=== PATIENT | female | born 1950 | race Caucasian/White ===

== ENCOUNTER → 2016-12-01 | Outpatient (CLI) | payer OTHER ==
[~2016-12-01] MED LIST: ASPIR 8181 MG PO; ASPIRIN EC325 M1 PO; ASPIRIN EC81 M1 PO; ATIVAN1 MG PO; BACTRIM DS TAB1 EACH PO; CALCIUM 1,0001 EACH PO; CALCIUM 500 +1 EACH PO; CALCIUM WITH V1 EAC1 PO; CARDIZEM CD120 MG PO; COLACE100 MG PO; CYMBALTA30 MG PO; DULERA 200 MCG/13 GM INH; ENOXAPARIN40 MG/0.1 SUBQ; HYDROCODONE-AP1 EAC6 PO; INDOMETHACIN 5050 MG PO; KLONOPIN0.5 MG PO; LEVALBUTER1.25 MG/0. INH; LIPITOR40 MG PO; MAGOX 400400 MG PO; MULTAQ400 MG PO; NICOTINE TRANSD21 M1 TRANSDERM; NORCO 5-325 TA1 EACH PO; OXYGEN NASAL; POTASSIUM20 PO; PREDNISONE 20 M20 MG PO; SPIRIVA INH; VENTOLIN HFA INH8 GM INH; XANAX 0.5 MG0.5 M1 PO; XANAX 0.5 MG0.5 MG PO; XANAX 1 MG TABLE1 MG PO; XOPENEX1.25 MG/3 INH; ZYRTEC10 M2 PO; ZYRTEC10 MG PO
== END ==
LOC: CAT 07:57
DX: R91.8 Other nonspecific abnormal finding of lung field (principal)

== ENCOUNTER → 2017-01-18 | Outpatient (CLI) | payer OTHER ==
--- NOTE | ~2017-01-18 | P ---
[facility] [place] [address] PROCEDURE REPORT Name: LINDA BAEZ Room #: REG [facility]#: [id number] Admission: 01/18/17 Attend Phys: Donny Lunsford MD Discharge: Date of : 46 Report #: [id number] THIS REPORT FOR: //name// CC: Donny Burciaga PROCEDURE: Fiberoptic bronchoscopy with fluoro. INDICATION: Lung mass. COMPLICATIONS: None. MEDICATIONS: Versed 12 mg, fentanyl 100 mcg. DESCRIPTION OF PROCEDURE: The patient was informed of risks and benefits and does discussed with the friend also. The patient required a significant amount of sedation; however, did well during the procedure and had amnesia postprocedure. Bronchoscope was passed, vocal cords moved normally. Mucous ____ was noted throughout. Main binu was sharp, right and left were evaluated. Fluoroscopy was used to localize right middle lobe. ____ brushes were passed; however, we cannot definitely say I was in lesion and biopsies were not done. Discussed with the friend post-procedure and a chest x-ray was done post-procedure showing no acute change. The patient is to follow up in the office. <ELECTRONICALLY SIGNED> By: Donny Lunsford MD 02/06/17 1917 0921 1030 Donny Lunsford MD /nt
--- NOTE | ~2017-01-18 | CNG ---
[facility] [place] [address] CYTO-NONGYN REPORT PROCEDURE Name: KALANI BAEZ Room #: REG [facility].#: [id number] Admission: 01/18/17 Date of : 46 Discharge: Report #: [id number] Path Case #: [id number] CYTOPATHOLOGY REPORT COLLECTION DATE: 01/18/2017 RECEIVED DATE: 01/18/2017 SUBMITTING PHYS: Dr. Donny Lunsford OTHER PHYS: Dr. Tad Burciaga CLINICAL HISTORY: Abnormal CT. SPECIMEN(S) RECEIVED: A.Bronchial brushings, RLL B.Bronchial brush rinse, RLL C.Bronchial wash, RLL * * * * * * * * * * * * FINAL DIAGNOSIS: A. Lung, RLL, Bronchial brushings: Atypical epithelial cells identified, cannot exclude a reactive process. - Background of reactive bronchial epithelial cells and alveolar macrophages. - Partially obscured by Air-drying artifact. B. Lung, RLL, Bronchial brush rinse: No malignant cells identified. - Reactive bronchial epithelial cells, inflammatory cells and alveolar macrophages. C. Lung, RLL, Bronchial wash: - No malignant cells identified. - Sparsely cellular specimen consisting of reactive bronchial epithelial cells, alveolar macrophages and mucoid debris. PATHOLOGIST: Jaz Damon M.D. REPORT ELECTRONICALLY SIGNED BY: Jaz Damon M.D. DATE/TIME: 01/19/2017 14:34 * * * * * * * * * * * * GROSS PATHOLOGY: A. Bronchial brushings, RLL: The specimen is labeled "Kalani Baez" and consists of four fixed slides. B. Bronchial brush rinse, RLL: The specimen is labeled "Kalani Baez" and consists of a brush tip in fixative. One ThinPrep slide was prepared. C. Bronchial wash, RLL: The specimen is submitted unfixed, labeled "Kalani Baez". Received by the Cytology Department is 10 mL of cloudy white fluid. One ThinPrep slide was prepared. (clt 01.18.2017) MACHINE ASSEMBLER(S): YI Chawla(ASCP) [address] [address] CYTO-NONGYN REPORT PROCEDURE Name: KALANI BAEZ Room #: [facility].#: [id number] Admission: 01/18/17 Date of : 46 Discharge: Report #: [id number] Path Case #: [id number] INITIAL CPT CODE(S): A; 73786 B; 81291 C; 74057 Professional services performed by [facility] at [address], [place] [address] Technical services performed by [facility] at [address] [place] [address]., [address], [place] [address]. [facility] [address] [place] [address], [address] [place] [address] PHONE: [phone] DIRECTOR: Dereje Bee M.D. * * * END OF REPORT * * *
== END | disposition home or self-care (01) ==
LOC: CATH 07:53
DX: R91.8 Other nonspecific abnormal finding of lung field (principal)

== ENCOUNTER → 2017-07-20 | Outpatient (CLI) | payer OTHER ==
[2017-07-20] VITALS (9 sets, daily range): BP systolic 115–140; BP diastolic 67–77
[~2017-07-20] VITALS: Ht 157.5 cm; Wt 46.3 kg
--- NOTE | ~2017-07-20 | S ---
[facility] [place] [address] SURGICAL PATH RPT PROCEDURE Name: KALANI BAEZ DAMIEN Room #: REG [facility].#: [id number] Admission: 07/20/17 Date of : 46 Discharge: Report #: [id number] Path Case #: [id number] PATHOLOGY REPORT COLLECTION DATE: 07/20/2017 RECEIVED DATE: 07/20/2017 SUBMITTING PHYS: Dr. Servando Dhaliwal OTHER PHYS: Dr. Donny Burciaga SPECIMEN(S) RECEIVED: A.R lung mass * * * * * * * * * * * * FINAL DIAGNOSIS: Lung, right lung mass, CT guided needle core biopsy: - AT LEAST MINIMALLY INVASIVE ADENOCARCINOMA. COMMENT: Co-review: Dr. Stephanie Crane. Findings are telephoned to Dr. Nick Lunsford at noon on 07/23/17. (IUV:db; 07/23/2017) PATHOLOGIST: Jaz Damon M.D. REPORT ELECTRONICALLY SIGNED BY: Jaz Damon M.D. DATE/TIME: 07/23/2017 16:30 * * * * * * * * * * * * GROSS PATHOLOGY: Received in formalin labeled "Kalani Baez, CT guided lung BX right side," are 7 distinct needle cores of diez soft tissue ranging from 0.1 to 0.2 cm in length, which are submitted entirely in cassette A1. Due to the minute nature of the specimen, it may not survive processing. (TSD; 07/20/2017) CLINICAL HISTORY: Right lung mass INITIAL CPT CODE(S): A; 79415 Professional services performed by [facility] at [facility] [address], [place] [address] [facility] [address] [place] [address] SURGICAL PATH RPT PROCEDURE Name: KALANI BAEZ Room #: REG [facility]#: [id number] Admission: 07/20/17 Date of : 46 Discharge: Report #: [id number] Path Case #: [id number] Technical services performed by [facility] at [address] [place] [address], [facility] [address] [address]. [facility] [address] [place] [address] PHONE: [phone] DIRECTOR: Dereje Bee M.D. * * * END OF REPORT * * *
[2017-07-20 09:05] LABS: HEMATOCRIT 40.5 % (37.0-47.0); HEMOGLOBIN 13.7 gm/dL (12.0-15.0); MCH 31.6 pg (26.0-34.0); MCHC 33.7 g/dL (28.0-37.0); MCV 93.6 fL (80.0-100.0); RBC 4.33 mil/uL (4.20-5.00); RDW 13.7 % (10.5-14.5)
[2017-07-20 09:13] LABS: CALCIUM 8.9 mg/dL (8.5-10.1); CREATININE 0.8 mg/dL (0.6-1.0); POTASSIUM 4.8 mmol/L (3.5-5.1)
[2017-07-20 09:20] LABS: APTT 26.4 Seconds (24.5-32.8); PROTIME 9.9 Seconds (9.3-11.4)
== END | disposition home or self-care (01) ==
LOC: CAT 08:35
PROVIDERS: Internal Medicine Pulmonary Disease
DX: C34.2 Malignant neoplasm of middle lobe, bronchus or lung (principal); I48.91 Unspecified atrial fibrillation; J44.9 Chronic obstructive pulmonary disease, unspecified; E78.5 Hyperlipidemia, unspecified; F32.9 Major depressive disorder, single episode, unspecified; F41.8 Other specified anxiety disorders; F17.210 Nicotine dependence, cigarettes, uncomplicated; Z96.642 Presence of left artificial hip joint; Z98.890 Other specified postprocedural states; Z79.899 Other long term (current) drug therapy

== ENCOUNTER → 2017-11-19 | Outpatient (CLI) | payer OTHER | LOC: CAT 06:43 | DX: J98.11 Atelectasis (principal); I25.10 Atherosclerotic heart disease of native coronary artery without angina pectoris; I70.0 Atherosclerosis of aorta; J43.8 Other emphysema ==

== ENCOUNTER 2018-11-06 20:58 | Emergency (ER) | payer OTHER ==
[~2018-11-06] VITALS: Ht 154.9 cm; Wt 46.3 kg
[2018-11-06] MEDS ORDERED: VENTOLIN HFA 1818 GM INH (21:02)
[2018-11-06] MEDS ORDERED: ASPIRIN81 M2 PO (21:02)
[2018-11-06] MEDS ORDERED: LIPITOR40 MG PO (21:02)
[2018-11-06] MEDS ORDERED: LEVALBUTER1.25 MG/0. INH (21:03)
[2018-11-06] MEDS ORDERED: ZOLOFT25 MG PO (21:03)
[2018-11-06] MEDS ORDERED: MULTAQ 400 MG400 MG PO (21:04)
[2018-11-06] MEDS ORDERED: PREDNISONE 5 MG5 M1 PO (21:04)
[2018-11-06] MEDS ORDERED: TRELEGY ELLIPT1 EACH INH (21:04)
[2018-11-06] MEDS ORDERED: ZYRTEC10 M5 PO (21:05)
[2018-11-06] MEDS ORDERED: XANAX 0.5 MG0.5 MG PO (21:05)
[2018-11-06] MEDS ORDERED: MUPIROCIN22 GM TOP (23:35)
[2018-11-06] MEDS ORDERED: BENADRYL25 MG PO (23:36)
[2018-11-06 23:58] VITALS: BP 142/70
== END 2018-11-06 23:59 | disposition home or self-care (01) ==
LOC: ER 20:58
DX: L30.9 Dermatitis, unspecified (principal); L01.00 Impetigo, unspecified; I48.91 Unspecified atrial fibrillation; J44.9 Chronic obstructive pulmonary disease, unspecified; E78.5 Hyperlipidemia, unspecified; Z96.642 Presence of left artificial hip joint; F17.210 Nicotine dependence, cigarettes, uncomplicated; Z88.1 Allergy status to other antibiotic agents; Z88.8 Allergy status to other drugs, medicaments and biological substances; Z91.040 Latex allergy status; Z79.899 Other long term (current) drug therapy

== ENCOUNTER 2018-11-17 21:14 | Emergency (ER) | payer OTHER ==
[~2018-11-17] VITALS: Ht 154.9 cm; Wt 45.4 kg
[~2018-11-17 21:14] MED LIST changes: +ASPIRIN81 M2 PO; +BENADRYL25 MG PO; +MULTAQ 400 MG400 MG PO; +MUPIROCIN22 GM TOP; +PREDNISONE 5 MG5 M1 PO; +TRELEGY ELLIPT1 EACH INH; +VENTOLIN HFA 1818 GM INH; +ZOLOFT25 MG PO; +ZYRTEC10 M5 PO
[2018-11-17 21:25] VITALS: BP 169/86
[2018-11-17] MEDS ORDERED: XANAX 0.5 MG0.5 M1 PO (22:05)
[2018-11-17] MEDS ORDERED: IPRAT-ALBUT 0.5-3 ML IH (22:11)
== END 2018-11-17 22:22 | disposition home or self-care (01) ==
LOC: ER 21:14
DX: F41.0 Panic disorder [episodic paroxysmal anxiety] (principal); J44.9 Chronic obstructive pulmonary disease, unspecified; L30.9 Dermatitis, unspecified; I48.91 Unspecified atrial fibrillation; F32.9 Major depressive disorder, single episode, unspecified; E78.5 Hyperlipidemia, unspecified; F17.210 Nicotine dependence, cigarettes, uncomplicated; Z96.642 Presence of left artificial hip joint; Z88.1 Allergy status to other antibiotic agents; Z88.8 Allergy status to other drugs, medicaments and biological substances; Z91.040 Latex allergy status; Z79.899 Other long term (current) drug therapy

== ENCOUNTER → 2019-09-16 | Outpatient (CLI) | payer OTHER ==
[~2019-09-16] MED LIST changes: +IPRAT-ALBUT 0.5-3 ML IH
== END ==
LOC: CAT 13:04
DX: J43.9 Emphysema, unspecified (principal); R91.1 Solitary pulmonary nodule; J98.4 Other disorders of lung; N28.1 Cyst of kidney, acquired; N63.20 Unspecified lump in the left breast, unspecified quadrant; J20.8 Acute bronchitis due to other specified organisms; M43.8X4 Other specified deforming dorsopathies, thoracic region

== ENCOUNTER 2020-01-31 23:36 | Inpatient (IN) | payer OTHER ==
[~2020-01-31] VITALS: Ht 157.5 cm; Wt 42.3 kg
[2020-01-31 23:37] VITALS: BP 124/81
[2020-02-01 00:21] LABS: BASOPHILS 1.5 % (0.0-2.0); EOSINOPHILS 8.4 % (0.0-3.0); HEMATOCRIT 49.9 % (37.0-47.0); HEMOGLOBIN 16.2 gm/dL (12.0-15.0); LYMPHOCYTES 11.4 % (24.0-44.0); MCH 31.1 pg (26.0-34.0); MCHC 32.5 g/dL (28.0-37.0); MCV 95.6 fL (80.0-100.0); MONOCYTES 9.5 % (1.0-8.0); PLATELET COUNT 335 thou/uL (150-400); POLYS 69.2 % (36.0-66.0); RBC 5.22 mil/uL (4.20-5.00); RDW 14.8 % (10.5-14.5); WBC 8.6 thou/uL (4.0-11.0)
[2020-02-01 00:23] LABS: ANION GAP 10 mmol/L (7-16); BUN 18 mg/dL (7-18); CALCIUM 9.1 mg/dL (8.5-10.1); CHLORIDE 104 mmol/L (98-107); CO2 29 mmol/L (21-32); CREATININE 0.7 mg/dL (0.6-1.0); GLUCOSE 70 mg/dL (74-106); POTASSIUM 4.6 mmol/L (3.5-5.1); SODIUM 143 mmol/L (136-145)
[2020-02-01 00:32] LABS: ALBUMIN 3.5 g/dL (3.4-5.0); SGOT 28 U/L (15-37); SGPT 18 U/L (30-65); TOTAL BILIRUBIN 0.4 mg/dL (0.2-1.0); TOTAL PROTEIN 6.8 g/dL (6.4-8.2); TROPONIN-I <0.06 ng/mL (<0.06)
[2020-02-01 02:54] VITALS: BP 110/67
[2020-02-01 03:53] VITALS: BP 110/67
[2020-02-01 04:12] VITALS: BP 134/88
--- NOTE | 2020-02-01 05:14 | NUR ---
VSS-AFEBRILE. ALERT AND ORIENTED X 4, SOA AT REST AND WITH MINIMAL EXERTION. 2LNC IN PLACE, REPORTS NO USE OF HOME OXYGEN. WHEEZES PRESENT IN ALL LUNGS BEE BILATERALLY. UPPER EXTREMITY TREMORS PRESENT. OOB WITH SBA AND CANE, WEAK AND UNSTEADY ON FEET. FALL PRECAUTIONS IN PLACE, CALLS APPROPRIATELY FOR ANY NEEDED ASSISTANCE.
[2020-02-01 08:01] VITALS: BP 109/62
--- NOTE | 2020-02-01 10:59 | EKG ---
[facility] [place] [address] ELECTROCARDIOGRAM REPORT Name: LINDA BAEZ Room #: 355-P ADM IN M.R.#: [id number] Admission: 02/01/20 Attend Phys: Lizabeth Chen MD Discharge: Date of : 46 Report #: [id number] THIS REPORT FOR: cc: Tad Burciaga MD, Michael D. MD Lundgren,Lonnie Curry MD [facility] ~ THIS REPORT FOR: //name// [facility] ED Test Date: 2020-01-31 Test Time: 23:57:39 Pat Name: LINDA BAEZ Department: Room: [facility] Gender: F Scale Shooter: LIZ : 1950 Requested By: Yusuf Johnson Order Number: [id number] MD: Lonnie Monroy Measurements Intervals [place] Rate: 90 P: 82 NE: 153 QRS: 83 QRSD: 97 T: 58 QT: 353 QTc: 432 Interpretive Statements Sinus rhythm Poor R wave progression Compared to ECG 04/30/2015 08:07:42 Myocardial infarct finding now present Atrial flutter no longer present Electronically Signed On 02-01-2020 10:59:00 CDT by Lonnie Monroy [email or web address] <ELECTRONICALLY SIGNED> By: Lonnie Monroy MD, [facility] 02/01/20 1059 2357 [id number] Lonnie Monroy MD, [facility] /EPI
[2020-02-01 16:33] VITALS: BP 121/72
--- NOTE | 2020-02-01 18:13 | NUR ---
ASSUMED CARE OF PT AT 0700. PT AOX4 IN NO ACUTE DISTRESS. MAINTAINS SPO2 ON 3L NC. SOA W/ ACTIVITY. BILAT WHEEZES TO AUSCULTATION. UP W/ SBA. OFF ENHANCED PRECAUTIONS PER I.D. SINUS ON TELEMETRY. AFEBRILE. WAITING ON BED TO TRANSFER OFF UNIT. PT CALLS OUT APPROPRIATELY. WCM.
[2020-02-01 20:50] VITALS: BP 131/75
[2020-02-02 03:25] VITALS: BP 145/82
[2020-02-02 06:47] LABS: HEMATOCRIT 45.5 % (37.0-47.0); HEMOGLOBIN 14.4 gm/dL (12.0-15.0); MCH 30.2 pg (26.0-34.0); MCHC 31.7 g/dL (28.0-37.0); MCV 95.5 fL (80.0-100.0); RBC 4.76 mil/uL (4.20-5.00); RDW 14.7 % (10.5-14.5); WBC 13.6 thou/uL (4.0-11.0)
[2020-02-02 06:55] LABS: CALCIUM 9.2 mg/dL (8.5-10.1); CREATININE 0.7 mg/dL (0.6-1.0); POTASSIUM 4.8 mmol/L (3.5-5.1)
--- NOTE | 2020-02-02 08:15 | NUR ---
Pt. c/o dryness in her nose. MOTORS AND CONTROLS TESTER notified and nasal gel ordered. Pt. verbalized relief after using it. O2 at 2.5 L/NC , wheezy and gets short of breath with exertion. PRN xanax given for anxiety with some relief. She stated she slept well during the night. IV on left AC leaking, new IV placed on left upper arm. Up by herself to the bathroom with steady gait and she calls appropriately for assistance when she's connected to her IV pump. No other concerns voiced. Making progress towards care plan goals.
[2020-02-02 08:21] VITALS: BP 128/76
--- NOTE | 2020-02-02 12:30 | NUR ---
PT MAY BE REMOVED FROM ENHANCED PRECAUTIONS PER JACK PIMENTEL
[2020-02-02 19:20] VITALS: BP 137/74
[2020-02-03 03:45] VITALS: BP 143/73
[2020-02-03 06:16] LABS: HEMATOCRIT 46.1 % (37.0-47.0); MCH 30.7 pg (26.0-34.0); MCHC 32.5 g/dL (28.0-37.0); MCV 94.4 fL (80.0-100.0); RBC 4.88 mil/uL (4.20-5.00); RDW 14.2 % (10.5-14.5); WBC 11.5 thou/uL (4.0-11.0)
[2020-02-03 06:28] LABS: CALCIUM 9.3 mg/dL (8.5-10.1); CREATININE 0.7 mg/dL (0.6-1.0); POTASSIUM 4.4 mmol/L (3.5-5.1)
--- NOTE | 2020-02-03 06:30 | NUR ---
Pt. requested xanax at HS. She feels like she's getting worst as far as her breathing comparing her previous admission to present. O2 at 3.5 L/NC with O2 sat in the mid 90's. She reported shortness of breath with minimal exertion. Refused PM dose of guiafenessin. Encouraged to call staff if condition does not improve after xanax. She verbalized feeling better after xanax dose. Ambulated with cane to the bathroom. Slept some. Making some progress towards care plan goals.
[2020-02-03 07:03] VITALS: BP 141/98
--- NOTE | 2020-02-03 14:05 | NUR ---
INITIAL ASSESSMENT: CRYSTAL reviewed chart and spoke with nursing and attending physician. Pt was admitted from home due to exacerbation of COPD/hypoxia. Pt placed in Enhanced Isolation to r/o COVID-19. Pt's test was negative. Pt to transfer off 3W when a bed becomes available. Pt is afebrile and on 3L of O2. Pt is on IV abx. CRYSTAL spoke with pt via phone. Introduced role of SW. Pt is alert/orientated x 4. Pt reports she lives at home alone in a split level home. 2 steps to enter and 12 steps total inside. Prior to admission, pt was independent with ADLs. Pt does have a cane and is on 2L O2 at nighttime only. [employer] provides pt's home O2. Pt states she has been increasingly weak over the past several days and has had to sit down and rest while walking short distances. Pt's neighbors and best friend are supportive and involved in pt's care. Pt has not used HH in the past. Pt has been to [facility] following hip surgery several years ago. Pt is agreeable with HH referral at time of discharge. Therapy is recommending HH. Pt's PCP is Dr. Tad Burciaga. Options provided for HH agency. No preference voiced. CRYSTAL faxed HH referral to [facility] . Notified liaison of new referral. Pt will need a rest/exercise oximetry prior to discharge to determine if pt has additional Home O2 needs. CRYSTAL is following to assist as needed with discharge planning.
[2020-02-03 15:24] VITALS: BP 123/80
--- NOTE | 2020-02-03 18:49 | NUR ---
PATIENT IS A TRANSFER FROM [facility] ARRIVED AT UNIT AT APPROX 1835. PATIENT IS SITTING COMFORTABLY IN BED AND VOICES NO NEEDS AT THIS TIME. VSS. WILL GIVE REPORT TO NOCTURNAL RN.
--- NOTE | 2020-02-04 04:15 | NUR ---
VSS-AFEBRILE. LUNGS TIGHT AND COURSE IN BILATERAL UPPER LOBES/DIMINISHED IN BASES. REMAINS ON 4LNC. AT PATIENTS REQUEST, VICENTE HALEY WAS CALLED TO REQUEST THAT XANAX BE ORDERED FOR EVERY 6 OURS VS EVERY 8. ORDER WAS APPROVED AND GIVEN DIRECTED FOR ANXIETY. RESTED WELL THROUGH NIGHT WITH FEW NEEDS. FALL PRECAUTIONS IN PLACE, CALLS APPROPRIATELY FOR ANY NEEDED ASSISTANCE.
[2020-02-04 05:58] LABS: HEMATOCRIT 47.8 % (37.0-47.0); HEMOGLOBIN 15.6 gm/dL (12.0-15.0); MCH 31.1 pg (26.0-34.0); MCHC 32.6 g/dL (28.0-37.0); MCV 95.5 fL (80.0-100.0); RBC 5.01 mil/uL (4.20-5.00); RDW 14.6 % (10.5-14.5); WBC 9.8 thou/uL (4.0-11.0)
[2020-02-04 06:25] LABS: CALCIUM 9.3 mg/dL (8.5-10.1); CREATININE 0.9 mg/dL (0.6-1.0); POTASSIUM 4.7 mmol/L (3.5-5.1)
[2020-02-04 07:46] VITALS: BP 165/77
--- NOTE | 2020-02-04 11:03 | NUR ---
Recommend to lift special precautions tray diet order since covid negative and recommend to discontinue heart healthy restricted and change to regular diet as pt is malnourished, has had wt loss and BMI of 17.
--- NOTE | 2020-02-04 14:44 | NUR ---
CARE TEAM INDICATED THAT PT WILL LIKELY BE MEDICALLY STABLE TO DC HOME TOMORROW. CM CALLED AND NOTIFIED [facility] INTAKE. PT IS STILL ON 3L O2 CONTINUOUSE AT THIS TIME. 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 CM TO FOLLOW INDICATED WITH DC PLANNING.
--- NOTE | 2020-02-04 19:56 | NUR ---
ASSUMED CARE OF PATIENT AT SHIFT CHANGE. ASSESSMENT CHARTED. MEDICATION GIVEN PER VIAL. VSS. PATIENT IS A&OX4 AND DENIES PAIN. STATES MUCINEX WILL NOT HELP; REFUSED. APPEARS TO BE DOING BETTER W NEW BREATHING TREATMENTS. PATIENT UP TO BATHROOM OR BSC W CANE AND TOLERATING WELL. NAPPING MOST OF DAY D/T POOR SLEEP LAST NIGHT. ANXIETY UNDER CONTROL. DENIES ANY OTHER NEEDS. CALLS NEEDED. WILL CONTINUE TO MONITOR AND FOLLOW PLAN OF CARE.
[2020-02-04 20:35] VITALS: BP 141/91
[2020-02-05 06:00] LABS: HEMATOCRIT 46.1 % (37.0-47.0); HEMOGLOBIN 14.7 gm/dL (12.0-15.0); MCH 30.5 pg (26.0-34.0); MCHC 31.9 g/dL (28.0-37.0); MCV 95.8 fL (80.0-100.0); RBC 4.81 mil/uL (4.20-5.00); RDW 14.7 % (10.5-14.5); WBC 9.5 thou/uL (4.0-11.0)
[2020-02-05 06:38] LABS: CALCIUM 9.5 mg/dL (8.5-10.1); CREATININE 0.5 mg/dL (0.6-1.0)
[2020-02-05 06:51] LABS: POTASSIUM 4.8 mmol/L (3.5-5.1)
[2020-02-05 07:45] VITALS: BP 129/72
--- NOTE | 2020-02-05 08:02 | NUR ---
Pt. rested quietly during the night when checked on during frequent rounds. She offers no c/o shortness of air or pain. Pt. does c/o anxiety and po xanax given (see emar) with some relief noted. Bed alarm is on.
[2020-02-05] MEDS ORDERED: NICOTINE TRANSD21 M1 TRANSDERM (09:30)
[2020-02-05] MEDS ORDERED: MUCINEX600 MG PO (09:31)
[2020-02-05] MEDS ORDERED: PREDNISONE 10 M10 M1 PO (09:32)
[2020-02-05] MEDS ORDERED: DOXYCYCLINE 10100 M2 PO (09:32)
[2020-02-05 10:24] VITALS: BP 129/72
--- NOTE | 2020-02-05 10:56 | NUR ---
PT DISCHARGING TODAY TO HOME WITH [facility] FAXED DC ORDERS/SUMMARY SPOKE WITH YANY IN INTAKE SHE RECEIVED ORDERS AND WILL NOTIFY PT AND SET UP VISITS.
[2020-02-05 10:59] VITALS: BP 129/72
--- NOTE | 2020-02-05 13:46 | NUR ---
CARE TEAM INDICATED THAT PT IS MEDICALLY STABLE TO DC HOME THIS DAY. EX OX TEST DONE THIS DAY AND PT QUALIFIED FOR 2L O2 WITH ACTIVITY. CM SPOKE WITH PT AND SHE WAS AGREEABLE WITH O2 BEING ORDERED THROUGH [facility] SHE HAD HER NOC O2 THROUGH THEM ALREADY. CM CONTACTED [facility] THEIR LIAISON, FAXED ORDER OVER AND REQUESTED THAT PORTABLE TANK BE DELIVERED FOR PT TO TAKE HOME WITH HER. ORDERS SENT TO [facility] FOR HH SERVICES. PT IS AWARE AND AGREEABLE AND INDICATED HER TRANSPORT WON'T BE HERE UNTIL AFTER 1600 THIS EVENING. NO OTHER CM INTERVENTION INDICATED. CASE CLOSED.
[2020-02-05 15:03] VITALS: BP 141/87
--- NOTE | 2020-02-05 15:31 | NUR ---
PT IS A&OX4, UP WITH CANE AND STAND BY ASSIST, IV LUE SALINE LOCK, NICOTINE PATCH LUE, REG DIET, CONTINENT TO BOWEL AND BLADDER, HYPOXIA, XANAX FOR ANXIETY. PT RECEIVED DISCHARGE INSTRUCTIONS, VERBLIZED UNDERSTANDING. PT GOING HOME WITH HOME HEALTH, NO DISTRESS NOTED.
== END 2020-02-05 17:40 | disposition home health service (06) | DRG 871 ==
LOC: ER 23:36 → EROBS 02-01 00:44 → 3W 02-01 00:44 → 4W 02-03 18:47
PROVIDERS: Emergency Medicine; Nurse Practitioner Family; ADMIT Hospitalist; ATTEND Hospitalist
DX: A41.9 Sepsis, unspecified organism (principal); J96.21 Acute and chronic respiratory failure with hypoxia; J44.0 Chronic obstructive pulmonary disease with (acute) lower respiratory infection; J44.1 Chronic obstructive pulmonary disease with (acute) exacerbation; C34.90 Malignant neoplasm of unspecified part of unspecified bronchus or lung; N17.9 Acute kidney failure, unspecified; Z20.828 Contact with and (suspected) exposure to other viral communicable diseases; F41.9 Anxiety disorder, unspecified; Z96.642 Presence of left artificial hip joint; F17.210 Nicotine dependence, cigarettes, uncomplicated; R63.4 Abnormal weight loss; G47.00 Insomnia, unspecified; Z60.2 Problems related to living alone; I48.0 Paroxysmal atrial fibrillation; D32.9 Benign neoplasm of meninges, unspecified; E78.5 Hyperlipidemia, unspecified; Z88.8 Allergy status to other drugs, medicaments and biological substances; Z88.1 Allergy status to other antibiotic agents; Z71.6 Tobacco abuse counseling; Z87.81 Personal history of (healed) traumatic fracture; Z91.040 Latex allergy status; Z79.82 Long term (current) use of aspirin; Z79.899 Other long term (current) drug therapy; Z82.49 Family history of ischemic heart disease and other diseases of the circulatory system; Z83.6 Family history of other diseases of the respiratory system; Z79.52 Long term (current) use of systemic steroids
CPT/HCPCS: 10040; 10080; 10879

== ENCOUNTER 2021-01-02 02:56 | Inpatient (IN) | payer OTHER ==
[~2021-01-02] VITALS: Ht 157.5 cm; Wt 43.2 kg
[2021-01-02] VITALS (7 sets, daily range): BP systolic 107–145; BP diastolic 54–82
--- NOTE | ~2021-01-02 | EMS ---
[place] [address] EMS Patient Care Report Name: LINDA BAEZ Room #: REG Wil[facility]#: [id number] Admission: 01/02/21 Attend Phys: Discharge: Date of : 46 Report #: [id number] THIS REPORT FOR: //name// Report Transmitted: 01/02/2021 03:49 EMS Care Summary [place], [place] Incident [id number] @ 01/02/2021 02:09 Incident [address] [place] [address] Patient LINDA BAEZ Female, 70 Years 1950 Patient Address [address] [place] [address] Patient History Chronic Obstructive Pulmonary Disease (COPD),Anxiety Disorder (Panic Attacks),Depression,Atrial Fibrillation, Patient Allergies Avelox,Keflex, Patient Medications Sertraline, Aspirin, Xanax, Ventolin, Atorvastatin, Chief Complaint RIGHT HIP PAIN Disposition Transported No Lights/[place] Dispatch Reason Traumatic Injury Transported To [facility] Narrative DISPATCHED NON EMERGENCY ON AN INJURY. 70 Y/O FEMALE SITTING ON COUCH IN LIVING ROOM APPEARING IN NO IMMEDIATE DISTRESS. GCS 15 AND A/OX4. CONSENTS FOR TX AND REQUESTS TRANSPORTATION TO [facility]. PT STATES THAT [place] [address] EMS Patient Care Report Name: LINDA BAEZ Room #: REG [facility]#: [id number] Admission: 01/02/21 Attend Phys: Discharge: Date of : 46 Report #: [id number] SHE WOKE UP IN BED WITH RIGHT HIP PAIN. DENIES ANY INJURY AT THAT POINT. SHE THEN STATES THAT SHE WENT TO GO TAKE HER DOGS OUTSIDE AND WHEN SHE TOOK A STEP DOWN THE STAIRS AND TURNED AROUND PUTTING WEIGHT ON IT SHE HAD A SHARP PAIN. NOW EVERY TIME SHE TRIES TO MOVE IT CAUSES HER SHARP PAIN. STILL DENIES REALLY INJURING HERSELF. MOVED WITHOUT INCIDENT TO AMBULANCE VIA STRETCHER. V/S'S OBTAINED. TRANSPORTED TO [facility]. REASSESSED ENROUTE. REMAINS GCS 15 AND A/X4. V/S'S OBTAINED. PAIN REMAINS UNCHANGED AT 6. REPORT CALLED TO HOSPITAL. MOVED WITHOUT INCIDENT TO ER HOSPITAL BED. PT CARE TRANSFERRED TO ED RN. MEDIC 41 PLACED IN SERVICE. Initial Vitals @02:43P: 91,R: 18,BP: 135/75,Pain: 6/10,GCS: 15,CO: 7,SpO2: 93,Revised Trauma: 12, @02:46P: 89,R: 16,BP: 128/78,Pain: 6/10,GCS: 15,CO: 8,SpO2: 93,Revised Trauma: 12, Assessments @02:31MENTAL:Person Oriented,Time Oriented,Event Oriented,Place Oriented,SKIN:HEENT:Head/Face: No Abnormalities,Neck/Airway: No Abnormalities,LUNG SOUNDS:General: No Abnormalities,ABDOMEN:General: No Abnormalities,PELVIS//GI:EXTREMITIES:Capillary Refill: Right Upper: < 2 Sec,Capillary Refill: Left Lower: < 2 Sec,Capillary Refill: Left Upper: < 2 Sec,Capillary Refill: Right Lower: < 2 Sec,Left Arm: No Abnormalities,Right Arm: No Abnormalities,Left Leg: No Abnormalities,Right Leg: No Abnormalities,PULSE:Radial: 2+ Normal,NEURO: Impression Acute Pain, not elsewhere classified Procedures @02:30ALS AssessmentResponse: UnchangedSucceeded@02:37StretcherResponse: Unchanged Timeline 02:08,Call Received 02:08,Dispatch Notified 02:09,Dispatched 02:11,En Route 02:26,On Scene 02:30,At Patient 02:30,ALS Assessment,Response: UnchangedSucceeded, 02:37,Stretcher,Response: Unchanged 02:43,BP: 135/75 M,PULSE: 91,RR: 18 R,SPO2: 93 Ox,ETCO2: ,BG: ,PAIN: 6,GCS: 15, 02:46,BP: 128/78 M,PULSE: 89,RR: 16 R,SPO2: 93 Ox,ETCO2: ,BG: ,PAIN: 6,GCS: 15, 02:47,Depart Scene 02:54,At Destination [facility] [address] [place] [address] EMS Patient Care Report Name: SASHALINDA Room #: REG Wilfred#: [id number] Admission: 01/02/21 Attend Phys: Discharge: Date of : 46 Report #: [id number] 03:16,Call Closed Disclaimer v1.1 Copyright 202 [employer] This EMS Care Summary contains data elements from the applicable legal record (which may be displayed differently). It is designed to provide pertinent information for the following purposes: continuity of care, clinical quality, and state data reporting. The complete legal record is available to ED staff and administrators of the receiving hospital in [employer] Patient Tracker. All data is provided "as is."
[~2021-01-02 02:56] MED LIST changes: +DOXYCYCLINE 10100 M2 PO; +MUCINEX600 MG PO; +PREDNISONE 10 M10 M1 PO
[2021-01-02 06:49] LABS: ABSOLUTE NEUTROPHILS 9.9 thou/uL (1.4-8.2); BASOPHILS 0.2 % (0.0-2.0); EOSINOPHILS 1.3 % (0.0-3.0); HEMATOCRIT 38.4 % (37.0-47.0); HEMOGLOBIN 13.6 gm/dL (12.0-15.0); MCH 32.7 pg (26.0-34.0); MCHC 35.4 g/dL (28.0-37.0); MCV 92.3 fL (80.0-100.0); MONOCYTES 10.5 % (1.0-8.0); PLATELET COUNT 339 thou/uL (150-400); RBC 4.16 mil/uL (4.20-5.00); RDW 13.8 % (10.5-14.5); WBC 12.2 thou/uL (4.0-11.0)
[2021-01-02 06:58] LABS: CALCIUM 8.9 mg/dL (8.5-10.1); CREATININE 0.6 mg/dL (0.6-1.0); POTASSIUM 3.7 mmol/L (3.5-5.1)
[2021-01-02 07:00] LABS: URINE BILIRUBIN NEGATIVE (Negative); URINE BLOOD TRACE (Negative); URINE CLARITY CLEAR; URINE COLOR YELLOW; URINE GLUCOSE-RANDOM* NEGATIVE (Negative); URINE KETONES TRACE (Negative); URINE LEUKOCYTES-REFLEX NEGATIVE (Negative); URINE NITRITE-REFLEX NEGATIVE (Negative); URINE PROTEIN (DIPSTICK) NEGATIVE (Negative); URINE UROBILINOGEN 0.2 E.U./dl (0.2-1.0)
--- NOTE | 2021-01-02 08:14 | EKG ---
[address] [place] [address] ELECTROCARDIOGRAM REPORT Name: LINDA BAEZ DAMIEN Room #: 463-P ADM IN M.R.#: [id number] Admission: 01/02/21 Attend Phys: Franck Vogt, Discharge: Date of : 46 Report #: [id number] [facility] ED Test Date: 2021-01-02 Test Time: 06:10:39 Pat Name: LINDA BAEZ Department: Room: 463 Gender: F Fig Washer: kashmir : 1950 Requested By: Pati Meng Order Number: [id number] MD: Raz Mariano Measurements Intervals [place] Rate: 85 P: 78 VA: 168 QRS: 93 QRSD: 94 T: 68 QT: 360 QTc: 428 Interpretive Statements Sinus rhythm Atrial premature complex Compared to ECG 01/31/2020 23:57:39 Atrial premature complex(es) now present Poor R-wave progression no longer present Electronically Signed On 01-02-2021 8:13:58 CDT by Raz Mariano [email or web address] <ELECTRONICALLY SIGNED> By: Raz Mariano MD, [facility] 01/02/21812 Raz Mariano MD, [facility] /EPI
[2021-01-02 14:24] LABS: ABSOLUTE NEUTROPHILS 14.8 thou/uL (1.4-8.2); BASOPHILS 0.3 % (0.0-2.0); EOSINOPHILS 0.2 % (0.0-3.0); HEMATOCRIT 41.5 % (37.0-47.0); HEMOGLOBIN 13.6 gm/dL (12.0-15.0); MCH 30.9 pg (26.0-34.0); MCHC 32.7 g/dL (28.0-37.0); MCV 94.4 fL (80.0-100.0); MONOCYTES 3.3 % (1.0-8.0); PLATELET COUNT 336 thou/uL (150-400); POLYS 93.2 % (36.0-66.0); RDW 14.1 % (10.5-14.5); WBC 15.9 thou/uL (4.0-11.0)
[2021-01-02 14:41] LABS: CALCIUM 8.6 mg/dL (8.5-10.1); CREATININE 0.6 mg/dL (0.6-1.0); POTASSIUM 4.4 mmol/L (3.5-5.1)
[2021-01-02 14:45] LABS: ALBUMIN 2.9 g/dL (3.4-5.0); PHOSPHORUS 4.2 mg/dL (2.5-4.9); TOTAL BILIRUBIN 0.5 mg/dL (0.2-1.0); TOTAL PROTEIN 6.3 g/dL (6.4-8.2)
[2021-01-02 15:04] LABS: FOLIC ACID 18.8 ng/mL (8.6-58.9)
--- NOTE | 2021-01-02 17:21 | NUR ---
Patient admitted from ER approx 9am due to R femoral neck fracture; transferred to bed safely. On telemetry; pt running Afib RVR- Dr Chen informed re: this during her AM rounds with the patient. On room air. Vital signs stable. With cheema in place; draining well; output measured and recorded accordingly. With SL at L AC. Admission history and education done. While doing pt's admission, pre-op nurse came to the room to bring down pt for OR since previous case got cancelled; during this time Dr Chen was also in the pt's room doing assessment, she talked to anesthesiologist for cardiac med orders. Pt brought down via bed to OR. Dr Chen ordered pt to be transferred to CCU post op- historic sites supervisor Tavia informed re: this; 205- report given to CHRISTINE Pope- informed her that admission assessment to be done, was unable to finish admission since pt was brought down to OR right away. monitor worker returned to unit; able to sign some of the pt's paperworks. Called pt's friend Alisa Rushing re: transfer to 205. Brought all pt's belongings to new 205, CHRISTINE Pope informed and aware re: this.
[2021-01-03 07:40] VITALS: BP 136/75
--- NOTE | 2021-01-03 07:50 | NUR ---
RECEIVED REPORT FROM NINO DAY SHIFT RN.PATIENT ON ABDUCTOR PILLOW.EAST INTACT BUT LEAKS.PAIN FAIRLY CONTROLLED.MONITOR SHOWS SR.POC CONTINUED.
--- NOTE | 2021-01-03 09:32 | EKG ---
[address] [place] [address] ELECTROCARDIOGRAM REPORT Name: LINDA BAEZ DAMIEN Room #: 205-P ADM IN M.R.#: [id number] Admission: 01/02/21 Attend Phys: Franck Vogt, Discharge: Date of : 46 Report #: [id number] [facility] ED Test Date: 2021-01-02 Test Time: 06:08:29 Pat Name: LINDA BAEZ Department: Room: 205 P Gender: F End Matcher: kashmir : 1950 Requested By: Mona Vogt Order Number: [id number] MD: Raz Mariano Measurements Intervals [place] Rate: 84 P: 73 GA: 170 QRS: 93 QRSD: 94 T: 74 QT: 355 QTc: 420 Interpretive Statements Sinus rhythm Atrial premature complex Compared to ECG 01/31/2020 23:57:39 Atrial premature complex(es) now present Poor R-wave progression no longer present Electronically Signed On 01-03-2021 9:32:23 CDT by Raz Mariano [email or web address] <ELECTRONICALLY SIGNED> By: Raz Mariano MD, [facility] [address] 7 7 Raz Mariano MD, [facility] /EPI
[2021-01-03 11:30] VITALS: BP 124/59
[2021-01-03 15:50] VITALS: BP 111/53
--- NOTE | 2021-01-03 17:58 | NUR ---
RECEIVED THE PATIENT ON BED, CONSCIOUS AND ORIENTED.ON ROOM AIR BREATHING SPONTANEOUSLY.NOT IN DISTRESS.REMOVED URINARY CATHETER ORDERED BY DR. MUÑIZ.WAS ABLE TO AMBULATE TODAY TO CHAIR WITH THE HELP OF THE PHYSIOTHERAPIST.ALL NEEDS ATTENDED.
[2021-01-03 20:39] VITALS: BP 125/55
--- NOTE | 2021-01-04 04:49 | NUR ---
PT A/OX4.VSS.S/P HEMIATHROPLASTY TO RIGHT HIP.KAILA DRESSING TO RIGHT HIP CDI.PAIN CONTROLLED WITH PAIN MEDS.VOIDS VIA BEDPAN.ON O2 AT 2LITERS PNC,NO RESP DISTRESS NOTED.CIWR SCORE 2-3.NO CONCERNS VOICED.POSSIBLE DISCHARGE TO N FOR REHAB.
[2021-01-04 05:37] VITALS: BP 133/62
[2021-01-04] MEDS ORDERED: XANAX 0.5 MG0.5 M1 PO (08:00)
[2021-01-04] MEDS ORDERED: OXYCODONE HCL 55 MG PO (08:00)
[2021-01-04] MEDS ORDERED: VITAMIN B-1100 M2 PO (08:00)
[2021-01-04] MEDS ORDERED: CARDIZEM CD120 MG PO (08:01)
[2021-01-04 08:05] VITALS: BP 130/67
--- NOTE | 2021-01-04 08:50 | NUR ---
ASSUMED PT CARE AT 0700, PT RESTING AT THIS TIME. ASSESSMENT PERFORMED CHARTED. VSS. WILL CONTINUE TO CONTINUE TO MONITOR AND FOLLOW POC.
--- NOTE | 2021-01-04 11:40 | NUR ---
PT PREPARING TO WORK WITH PT, FLUIDS D/C FROM PATIENT. PTS VSS. WILL CONTINUE TO MONITOR AND FOLLOW POC.
--- NOTE | 2021-01-04 13:40 | NUR ---
5N door and arrival attendant evaluated pt for rehab needs. Pt [facility] as she has been there last year and had a good experience. [facility] liason notified and referral faxed. Possible dc tomorrow if cleared by ortho and cardiology. Will follow.
--- NOTE | 2021-01-04 15:06 | EKG ---
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 : 1950 Requested By: Juliocesar Valenzuela Order Number: [id number] MD: Raz Mariano Measurements Intervals [place] Rate: 100 P: 65 ID: 156 QRS: 84 QRSD: 96 T: 43 QT: 342 QTc: 442 Interpretive Statements Sinus tachycardia Borderline right axis deviation Abnormal R-wave progression, late transition Minimal ST elevation, anterior leads Baseline wander in lead(s) V3 Compared to ECG 01/02/2021 06:10:39 ST (T wave) deviation now present Sinus rhythm no longer present Atrial premature complex(es) no longer present Electronically Signed On 01-04-2021 15:06:39 CDT by Raz Maraino [email or web address] <ELECTRONICALLY SIGNED> By: Raz Mariano MD, [facility] 01/04/21 1506 1 1 Raz Mariano MD, [facility] /EPI
[2021-01-04 16:49] VITALS: BP 111/65
[2021-01-04 17:14] VITALS: BP 106/60
[2021-01-04 21:25] VITALS: BP 99/55
--- NOTE | 2021-01-05 04:32 | NUR ---
ASSESSMENTS CHARTED, MEDS CHARTED GIVEN. PATIENT RESTING IN BED DURING SHIFT CHANGE. READY FOR PAIN MEDICINE, GIVEN DURING SHIFT CHANGE. UP X [address]SC[address] KAILA DRESSING IN PLACE AND SEALED ON RIGHT HIP. PATIENT AND FAMILY IS LOOKING INTO REHAB FACILITIES HERE AND [place]. MAY TRANSFER OUT TODAY. FALL PRECAUTIONS IN PLACE DURING SHIFT.
[2021-01-05 05:09] VITALS: BP 95/51
[2021-01-05 07:40] VITALS: BP 111/60
--- NOTE | 2021-01-05 08:05 | NUR ---
assumed pt care at 0700. at 0800 assessment performed as charted. medication administration. pt in bed, pt voices no concerns for the day. vss. will continue to monitor and follow poc.
[2021-01-05 08:28] LABS: HEMATOCRIT 25.9 % (37.0-47.0); MCH 31.7 pg (26.0-34.0); MCHC 34.1 g/dL (28.0-37.0); MCV 92.9 fL (80.0-100.0); RBC 2.78 mil/uL (4.20-5.00); WBC 11.2 thou/uL (4.0-11.0)
[2021-01-05 08:37] LABS: CALCIUM 8.5 mg/dL (8.5-10.1); CREATININE 0.7 mg/dL (0.6-1.0); MAGNESIUM 1.8 mg/dL (1.8-2.4); POTASSIUM 3.6 mmol/L (3.5-5.1)
[2021-01-05 08:45] LABS: HEMOGLOBIN 8.8 gm/dL (12.0-15.0)
--- NOTE | 2021-01-05 11:14 | NUR ---
PT IN BED WORKING WITH PT/OT. VSS. PTS HEARTRATE INCREASES WITH ACTIVITY BUT WILL COME BACK DOWN AT REST. WILL CONTINUE TO MONITOR AND FOLLOW POC.
[2021-01-05 11:30] VITALS: BP 104/58
[2021-01-05 15:15] VITALS: BP 104/61
--- NOTE | 2021-01-05 15:50 | NUR ---
Followup visit made with pt and her friend Alisa at bedside. [facility] has a bed for her tomorrow. She will need to quarentine as she has only had one Pfizer vaccine a month ago. Yosvany rendon on 01/02 results faxed to [facility]. All parties anticipating dc to snf tomorrow.
[2021-01-05 19:42] VITALS: BP 116/52
[2021-01-06 04:41] LABS: CALCIUM 8.6 mg/dL (8.5-10.1); CREATININE 0.7 mg/dL (0.6-1.0); MAGNESIUM 1.9 mg/dL (1.8-2.4); POTASSIUM 4.3 mmol/L (3.5-5.1)
[2021-01-06 04:49] LABS: HEMATOCRIT 26.1 % (37.0-47.0); HEMOGLOBIN 8.8 gm/dL (12.0-15.0); MCH 31.8 pg (26.0-34.0); MCHC 33.9 g/dL (28.0-37.0); MCV 93.9 fL (80.0-100.0); RBC 2.78 mil/uL (4.20-5.00); WBC 10.8 thou/uL (4.0-11.0)
--- NOTE | 2021-01-06 05:35 | NUR ---
ASSESSMENTS CHARTED, MEDS CHARTED GIVEN. PATIENT RESTING IN BED DURING SHIFT. STATED PAIN IS GETTING BETTER. UP WITH STANDBY ASSIST AND WALKER TO BSC. KAILA DRESSING IN PLACE AND WORKING CORRECTLY. FALL PRECAUTIONS IN PLACE DURING SHIFT. PLAN OF CARE IS TO TRANSFER TO REHAB FACILITY TO CONTINUE STRENGTHING LEG.
[2021-01-06 07:40] VITALS: BP 122/57
[2021-01-06 08:11] VITALS: BP 122/57
--- NOTE | 2021-01-06 12:12 | NUR ---
DC orders faxed and confirmed with [facility]. They have setup a 1330 w/c van transport for the pt. Nursing to call report. Chart copy and orders are ready to be sent with the pt. Pt aware and will let her friend Alisa know. Pt to be skilled for therapy with the goal of returning home.
--- NOTE | 2021-01-06 14:07 | NUR ---
PT IS AXOX4, PLEASANT; C/O PAIN IN BACK AND CRAMPING IN STOMACH. VSS, AFEBRILE, SR ON MONITOR. DR MADISON CONSULTED, DR MARCUS CONSULTED, CASE MGMT CONSULTED. PT TO D/C TO [facility] FOR REHAB. PT STARTED TO EXHIBIT TACHYCARDIA AFTER BEING TOLD SHE WOULD BE LEAVING FOR FACILITY. PT C/O PAIN AND ANXIETY. RX OXYCODONE AND XANAX GIVEN. PT D/C VIA WC VAN TO FACILITY. NO CONCERNS AT THIS TIME.
== END 2021-01-06 14:15 | DRG 521 ==
LOC: ER 02:56 → EROBS 06:02 → 2N 06:02 → 4W 08:13 → 2N 11:00
PROVIDERS: Emergency Medicine; Internal Medicine; ADMIT Surgery; ATTEND Surgery
PROC: 0SRR0JZ Replacement of Right Hip Joint, Femoral Surface with Synthetic Substitute, Open Approach (ICD-10-PCS; principal; 2021-01-02)
DX: S72.001A Fracture of unspecified part of neck of right femur, initial encounter for closed fracture (principal); E43 Unspecified severe protein-calorie malnutrition; I48.21 Permanent atrial fibrillation; D62 Acute posthemorrhagic anemia; J44.9 Chronic obstructive pulmonary disease, unspecified; J45.909 Unspecified asthma, uncomplicated; Z96.642 Presence of left artificial hip joint; E78.5 Hyperlipidemia, unspecified; F17.210 Nicotine dependence, cigarettes, uncomplicated; I10 Essential (primary) hypertension; F10.20 Alcohol dependence, uncomplicated; I48.0 Paroxysmal atrial fibrillation; F41.9 Anxiety disorder, unspecified; Z60.2 Problems related to living alone; Z20.822 Contact with and (suspected) exposure to COVID-19; W18.39XA Other fall on same level, initial encounter; Y93.89 Activity, other specified; Y92.89 Other specified places as the place of occurrence of the external cause; Y99.8 Other external cause status; Z71.41 Alcohol abuse counseling and surveillance of alcoholic; Z79.01 Long term (current) use of anticoagulants; Z88.8 Allergy status to other drugs, medicaments and biological substances; Z88.1 Allergy status to other antibiotic agents; Z91.040 Latex allergy status; Z80.1 Family history of malignant neoplasm of trachea, bronchus and lung; Z83.6 Family history of other diseases of the respiratory system; Z79.82 Long term (current) use of aspirin; Z79.899 Other long term (current) drug therapy; Z71.6 Tobacco abuse counseling
CPT/HCPCS: 10081; 50101; 50414; 51412; 53000; 56525; 56526; 57103; 58605; 62110; 62900; 70005

== ENCOUNTER 2021-04-04 16:00 | Inpatient (IN) | payer OTHER ==
[~2021-04-04] VITALS: Ht 144.8 cm; Wt 39.0 kg
--- NOTE | ~2021-04-04 | EMS ---
[place] [address] EMS Patient Care Report Name: LINDA BAEZ Room #: 219-P ADM IN M.R.#: [id number] Admission: 04/04/21 Attend Phys: Mary Jane Bashir Discharge: Date of : 46 Report #: [id number] THIS REPORT FOR: //name// Report Transmitted: 04/06/2021 12:28 EMS Care Summary [place], [place] Incident [id number] @ 04/04/2021 15:18 Incident Location [address] [place] [address] Patient LINDA BAEZ Female, 71 Years 1950 Patient Address [address] [place] [address] Patient History Chronic Obstructive Pulmonary Disease (COPD),Atrial Fibrillation, Patient Allergies No known allergies, Patient Medications Oxygen, Albuterol, Chief Complaint Confusion Disposition Transported No Lights/[place] Dispatch Reason Sick Person Transported To [facility] Narrative Initially dispatched to meet [place] on scene of a sick person. Upon EMS arrival [employer] officers were outside. They reported that the patient had been "sleeping with her dog for five days and is very confused". Patient was found laying in bed on 3lpm home oxygen via cannula, pale in color, conscious[place] [address] EMS Patient Care Report Name: LINDA BAEZ Room #: 219-P ADM IN M.R.#: [id number] Admission: 04/04/21 Attend Phys: Mary Jane Bashir Discharge: Date of : 46 Report #: [id number] She stated that she was feeling fatigued and disoriented. Patient was oriented to self, the day of the week, and event. But she was unable to state what year it was. Field stroke exam was negative for deficits, but patient was generally weak. Patient's left hand was found to be swollen. She denied any injury or pain in her hand. She was assisted onto the stretcher, secured, and loaded into the ambulance. Patient was transported to [facility] without incident. Full report was given to RN prior to signing this document. Initial Vitals @15:49P: 180,SpO2: 97, @15:47P: 131,SpO2: 97, @15:46P: 70,R: 22,BP: 107/69,Pain: 0/10,GCS: 14,Glucose: 122,CO: 0,SpO2: 98,Revised Trauma: 12, @15:54P: 153,R: 22,BP: 103/69,GCS: 14,CO: 0,SpO2: 92,Revised Trauma: 12, @15:49P: 178,SpO2: 97,TX Suspected: false Assessments @15:33MENTAL:Confused,SKIN:Pale,HEENT:Head/Face: No Abnormalities,Eyes: No Abnormalities,Neck/Airway: No Abnormalities,LUNG SOUNDS:General: No Abnormalities,Left Upper: No Abnormalities,Right Upper: No Abnormalities,Left Lower: No Abnormalities,Right Lower: No Abnormalities,ABDOMEN:General: No Abnormalities,Left Upper: No Abnormalities,Right Upper: No Abnormalities,Left Lower: No Abnormalities,Right Lower: No Abnormalities,PELVIS//GI:EXTREMITIES:Left Arm: RICKY,Right Arm: No Abnormalities,Left Leg: No Abnormalities,Right Leg: No Abnormalities,PULSE:NEURO:Weakness Right-Sided,Weakness Left-Sided, Impression Altered Mental Status Procedures @15:33ALS AssessmentResponse: UnchangedSucceeded@15:50Saline Lock 10cc (20 ga) Site: Forearm-LeftResponse: UnchangedSucceeded@15:493-Lead ECGResponse: UnchangedSucceeded Timeline 15:17,Call Received 15:17,Dispatch Notified 15:18,Dispatched 15:18,En Route 15:29,On Scene 15:33,At Patient 15:33,ALS Assessment,Response: UnchangedSucceeded, 15:46,BP: 107/69 M,PULSE: 70,RR: 22 R,SPO2: 98 Ox,ETCO2: ,B,PAIN: 0,GCS: 14, 15:47,BP: / M,PULSE: 131,RR: R,SPO2: 97 Ox,ETCO2: ,BG: ,PAIN: ,GCS: , [address] [address] EMS Patient Care Report Name: LINDA BAEZ DAMIEN Room #: 219-P ADM IN M.R.#: [id number] Admission: 04/04/21 Attend Phys: Mary Jane Bashir Discharge: Date of : 46 Report #: [id number] 15:49,3-Lead ECG,Response: UnchangedSucceeded, 15:49,BP: / M,PULSE: 178,RR: R,SPO2: 97 Ox,ETCO2: ,BG: ,PAIN: ,GCS: , 15:49,BP: / M,PULSE: 180,RR: R,SPO2: 97 Ox,ETCO2: ,BG: ,PAIN: ,GCS: , 15:50,Saline Lock 10cc 20 ga Site: Forearm-Left,Response: UnchangedSucceeded, 15:51,Depart Scene 15:54,BP: 103/69 M,PULSE: 153,RR: 22 R,SPO2: 92 Ox,ETCO2: ,BG: ,PAIN: ,GCS: 14, 15:57,At Destination 16:12,Call Closed Disclaimer v1.1 Copyright 2020 [employer] This EMS Care Summary contains data elements from the applicable legal record (which may be displayed differently). It is designed to provide pertinent information for the following purposes: continuity of care, clinical quality, and state data reporting. The complete legal record is available to ED staff and administrators of the receiving hospital in [employer]'s Patient Tracker. All data is provided "as is."
[2021-04-04 16:00] VITALS: BP 86/63
[~2021-04-04 16:00] MED LIST changes: +OXYCODONE HCL 55 MG PO; +VITAMIN B-1100 M2 PO
[2021-04-04 16:20] LABS: HEMATOCRIT 35.1 % (37.0-47.0); HEMOGLOBIN 11.3 gm/dL (12.0-15.0); MCH 26.3 pg (26.0-34.0); MCHC 32.1 g/dL (28.0-37.0); MCV 81.9 fL (80.0-100.0); PLATELET COUNT 664 thou/uL (150-400); RBC 4.29 mil/uL (4.20-5.00); RDW 17.6 % (10.5-14.5)
[2021-04-04 16:24] LABS: WBC 36.7 thou/uL (4.0-11.0)
[2021-04-04 16:45] LABS: MAGNESIUM 1.9 mg/dL (1.8-2.4); PHOSPHORUS 2.9 mg/dL (2.6-4.7); SALICYLATE 4.4 mg/dL (2.8-20.0)
[2021-04-04 16:55] LABS: URINE BILIRUBIN NEGATIVE (Negative); URINE BLOOD 1+ (Negative); URINE COLOR YELLOW; URINE GLUCOSE-RANDOM* NEGATIVE (Negative); URINE KETONES 1+ (Negative); URINE LEUKOCYTES-REFLEX TRACE (Negative); URINE PROTEIN (DIPSTICK) 1+ (Negative); URINE SPECIFIC GRAVITY 1.025 (1.005-1.035); URINE UROBILINOGEN 0.2 E.U./dl (0.2-1.0)
[2021-04-04 16:57] LABS: URINE CLARITY CLOUDY; URINE NITRITE-REFLEX POSITIVE (Negative)
[2021-04-04 17:00] LABS: ABSOLUTE NEUTROPHILS 34.1 thou/uL (1.4-8.2)
[2021-04-04 17:01] LABS: ANISOCYTOSIS 1+; PLATELET ESTIMATE INCREASED
[2021-04-04 17:06] LABS: BACTERIA-REFLEX >30 Many /HPF (None Seen); CRYSTALS None Seen /LPF (None Seen); SQUAMOUS 4-10 Moderate /LPF (0-3); URINE RBC 1-2 Rare /HPF (NONE SEEN); URINE WBC-REFLEX 6-15 Few /HPF (0-5)
[2021-04-04 17:11] LABS: CALCIUM 8.9 mg/dL (8.5-10.1); CREATININE 0.7 mg/dL (0.6-1.0); POTASSIUM 4.1 mmol/L (3.5-5.1)
[2021-04-04 17:17] LABS: TOTAL BILIRUBIN 0.3 mg/dL (0.2-1.0); TOTAL PROTEIN 5.6 g/dL (6.4-8.2)
[2021-04-04 17:17] LABS: AMP/METHAMP Negative (Negative); BARBITURATES Negative (Negative); BENZODIAZEPINES POSITIVE (Negative); COCAINE Negative (Negative); METHADONE Negative (Negative); OPIATES Negative (Negative); PCP Negative (Negative)
[2021-04-04 20:35] VITALS: BP 105/69
[2021-04-04 21:50] VITALS: BP 108/63
[2021-04-05 00:07] VITALS: BP 11/62; BP 111/62
[2021-04-05 05:13] VITALS: BP 102/58
[2021-04-05 05:47] LABS: HEMATOCRIT 25.8 % (37.0-47.0); MCH 26.7 pg (26.0-34.0); MCHC 32.5 g/dL (28.0-37.0); MCV 82.1 fL (80.0-100.0); RBC 3.14 mil/uL (4.20-5.00); RDW 17.1 % (10.5-14.5); WBC 31.1 thou/uL (4.0-11.0)
[2021-04-05 06:08] LABS: CALCIUM 8.1 mg/dL (8.5-10.1); CREATININE 0.6 mg/dL (0.6-1.0); POTASSIUM 3.3 mmol/L (3.5-5.1)
[2021-04-05 06:11] LABS: HEMOGLOBIN 8.4 gm/dL (12.0-15.0)
[2021-04-05 06:16] LABS: ALBUMIN 1.7 g/dL (3.4-5.0); MAGNESIUM 1.7 mg/dL (1.8-2.4); PHOSPHORUS 2.4 mg/dL (2.5-4.9)
--- NOTE | 2021-04-05 07:10 | EKG ---
[address] [place] [address] ELECTROCARDIOGRAM REPORT Name: LINDA BAEZ DAMIEN Room #: 219-P ADM IN M.R.#: [id number] Admission: 04/04/21 Attend Phys: Mary Jane Bashir Discharge: Date of : 46 Report #: [id number] [facility] ED Test Date: 2021-04-04 Test Time: 16:12:24 Pat Name: LINDA BAEZ Department: Room: 219 Gender: F Publications Distribution Clerk: JOSEFA : 1950 Requested By: Darrin Horton Order Number: [id number] MD: Raz Mariano Measurements Intervals [place] Rate: 162 P: CT: QRS: 121 QRSD: 83 T: 70 QT: 280 QTc: 460 Interpretive Statements Atrial fibrillation with rapid V-rate Compared to ECG 01/04/2021 09:12:36 Sinus tachycardia no longer present ST (T wave) deviation still present Electronically Signed On 04-05-2021 7:09:58 CDT by Raz Mariano [email or web address] <ELECTRONICALLY SIGNED> By: Raz Mariano MD, [facility] 04/05/21 0709 11 11 Raz Mariano MD, FACC /EPI
[2021-04-05 07:21] LABS: INR 1.12; PROTIME 12.1 Seconds (10.5-12.1)
--- NOTE | 2021-04-05 07:34 | NUR ---
PT ADMITTED FORM ER AT AROUND 2144, PT IS AWAKE, ALERT AND ORIENTEDX3 WITH SOME FORGETFULNESS, PT IS SA/SR ON TELE, HR BETWEEN 70S-90S, DENIES PAIN, ON 2L NC, ADMISSISSION ASSESSMENT, HX AND EDUCATION COMPLETED, REMAINS ON CARDIZEM GTT AT 5ML/HR, NO NEEDS AT THIS TIME, REPORT GIVEN TO DAY NURSE
[2021-04-05 08:00] VITALS: BP 122/61
[2021-04-05 12:15] VITALS: BP 112/60
[2021-04-05 16:23] VITALS: BP 115/65
--- NOTE | 2021-04-05 19:33 | NUR ---
END SHIFT NOTE: PT REMAINED SAFE AND COMFORTABLE, KEPT ASKING FOR INHALER, VSS, THORACENTESIS, W/O COMPLIACTION, K REPLACED, AFEBRILE. NO NEW CONCERNS.
[2021-04-05 20:15] VITALS: BP 120/63
--- NOTE | 2021-04-06 02:54 | NUR ---
ASSUMED PT CARE AT 1900, PT IS AWAKE, ALERT AND ORIENTED, SA ON TELE; HR CONTROLLED IN THE 80S, DENIES PAIN OR SOA, REMAINS ON RA, BREATHING TX PRN, REMAINS ON IV ABX, THORACETHESIS SITE INTACT, NO DRAINAGE, IV FLUIDS INFUSING PER ORDERS, ASSESSMENTS CHARTED, NO DISTRESS NOTED WILL COTINUE TO MONITOR AND FOLLOW POC
[2021-04-06 03:51] VITALS: BP 111/58
[2021-04-06 05:42] LABS: HEMATOCRIT 25.2 % (37.0-47.0); MCH 25.6 pg (26.0-34.0); MCHC 31.6 g/dL (28.0-37.0); RBC 3.11 mil/uL (4.20-5.00); RDW 17.4 % (10.5-14.5); WBC 27.3 thou/uL (4.0-11.0)
[2021-04-06 06:17] LABS: ALBUMIN 1.5 g/dL (3.4-5.0); CALCIUM 7.7 mg/dL (8.5-10.1); CREATININE 0.6 mg/dL (0.6-1.0); MAGNESIUM 1.4 mg/dL (1.8-2.4); PHOSPHORUS 2.2 mg/dL (2.5-4.9); POTASSIUM 3.5 mmol/L (3.5-5.1)
[2021-04-06 08:00] VITALS: BP 124/78
[2021-04-06 13:07] VITALS: BP 102/51
--- NOTE | 2021-04-06 14:42 | NUR ---
Case opened to follow for dc planning. Pt known to cm from recent admission d/t hip sx and dc to SNF at [facility] in December 2020. From skilled rehab she went home with hh, but can not recall the agency name. She reports she was doing well after rehab and able to get around her home with a cane. She has a rwalker and home o2 prn. She had one step to enter and six inside her home. CM role introduced at bedside. The pt is a&ox4 but reports she is tired and depressed with recent loss of her last pet. She notes she lost four pets in the last couple of years. Concerns regarding her living conditions and the condition inich EMS found her bed with her pets remains of many days. The pt would like to discuss options but wants her friend/earnest jettaret involved. Alisa contacted and she is on her way in to meet with pt/cm this afternoon. Possible SNF referrals vs ;however pt declined therapy today. Psych eval requested as the pt has depressed affect.
[2021-04-06 16:00] VITALS: BP 115/62
[2021-04-06] MEDS ORDERED: XANAX 0.5 MG0.5 MG PO (16:30)
[2021-04-06 19:21] VITALS: BP 114/52
--- NOTE | 2021-04-06 19:30 | NUR ---
ASSUMED CARE AT SHIFT CHANGE THIS AM. PT A/O X 3, FORGETFUL AT TIMES. DENIES PAIN THOUGHOUT SHIFT. PT WITH DEPRESSED AFFECT, SLEEPING MOST OF DAY AND SPEAKING MINIMALLY. REPORTS LOSS OF DOG LAST WEEK HAS AFFECTED HER DRAMATICALLY. NEW CONSULT FOR DR LAGUNA PLACED TODAY. PT C/O SOA AND PRN RT TREATMENTS GIVEN THROUGHOUT THE DAY. PT HAS POOR APPETITE, DID NOT EAT MUCH LUNCH OR DINNER, DID DRINK ENSURE SHAKES HOWEVER. AFIB RVR THIS AM, IV LOPRESSOR AND ADDITIONAL CARDIZEM GIVEN PER ORDER, RATE REGULAR POST MEDS THROUGH REST OF SHIFT. PT REFUSED TO WORK WITH THERAPY TODAY, STATING SHE IS TOO WEAK AND TIRED AND DOES NOT FEEL LIKE DOING THAT TODAY. ENCOURAGED TO TRY TO EAT AND DO THERAPY TOMORROW TO HELP HERSELF GET BETTER. REPORT GIVEN TO CHRISTINE HAMILTON ON [facility].
--- NOTE | 2021-04-07 03:43 | NUR ---
Assumed pt care at 1900. Pt is alert and oriented. No sign of distress noted in pt. Denies pain. Assessment completed and documented. Fall precaution in place. Scheduled meds administered to pt. No acute events through the night. Continue to monitor. No further needs at this time.
[2021-04-07 04:54] VITALS: BP 126/62
[2021-04-07 05:19] LABS: HEMATOCRIT 23.9 % (37.0-47.0); HEMOGLOBIN 7.8 gm/dL (12.0-15.0); MCHC 32.5 g/dL (28.0-37.0); MCV 82.8 fL (80.0-100.0); RBC 2.89 mil/uL (4.20-5.00); RDW 17.7 % (10.5-14.5); WBC 28.5 thou/uL (4.0-11.0)
[2021-04-07 06:20] LABS: ALBUMIN 1.4 g/dL (3.4-5.0); CALCIUM 7.9 mg/dL (8.5-10.1); CREATININE 0.7 mg/dL (0.6-1.0); PHOSPHORUS 2.8 mg/dL (2.5-4.9); POTASSIUM 3.5 mmol/L (3.5-5.1)
[2021-04-07 07:35] VITALS: BP 113/59
[2021-04-07 11:04] VITALS: BP 112/65
[2021-04-07 13:38] LABS: % SATURATION 5 % (20-39); IRON 7 ug/dL (50-170); TIBC 130 ug/dL (250-450)
--- NOTE | 2021-04-07 15:42 | 2DMMODE ---
[facility] [place] [address] 2 D/M-MODE ECHOCARDIOGRAM Name: LINDA BAEZ DAMIEN Room #: 219-P ADM IN M.R.#: [id number] Admission: 04/04/21 Attend Phys: Mary Jane Bashir Discharge: Date of : 46 Report #: [id number] THIS REPORT FOR: cc: Tad Burciaga MD, Michael D. MD Lundgren, Craig H. MD [facility] ~ APPROVED REPORT Study performed: 04/07/2021 14:44:18 EXAM: Comprehensive 2D, Doppler, and color-flow Echocardiogram Patient Location: Bedside Room #: 219 Status: routine BSA: 1.26 HR: 87 bpm BP: 112/65 mmHg Rhythm: Atrial Fibrillation Other Information Study Quality: Good Indications COPD Atrial Fibrillation 2D Dimensions RVDd: 38.89 mm IVSd: 7.73 (7-11mm) LVOT Diam: 18.89 (18-24mm) LVDd: 41.76 mm PWd: 8.31 (7-11mm) Ascending Ao: 23.22 (22-36mm) LVDs: 27.46 (25-40mm) Left Atrium: 35.78 (27-40mm) Aortic Root: 28.59 mm IVC: 19.00 mm Volumes Left Atrial Volume (Systole) Single Plane 4CH: 58.46 mL Single Plane 2CH: 58.34 mL LA ESV Index: 51.00 mL/m2 Aortic Valve AoV Peak Shane.: 1.69 m/s AO Peak Gr.: 11.38 mmHg LVOT Max P.18 mmHg LVOT Max V: 1.02 m/s [facility] [place] [address] [address] [place] [address] 2 D/M-MODE ECHOCARDIOGRAM Name: SASHALINDA LEE Room #: 219-P [facility] IN .R.#: [id number] Admission: 04/04/21 Attend Phys: Mary Jane Kiser Discharge: Date of : 46 Report #: [id number] SINA Vmax: 1.70 cm2 Pulmonary Valve PV Peak Shane.: 1.13 m/s PV Peak Gr.: 5.09 mmHg Tricuspid Valve TR Peak Shane.: 3.30 m/s TR Peak Gr.: 43.69 mmHg PA Pressure: 49.00 mmHg Left Ventricle The left ventricle is normal size. There is normal LV segmental wall motion. There is normal left ventricular wall thickness. The left ventricular systolic function is normal. The left ventricular ejection fraction is within the normal range. LVEF 60%. This study is not technically sufficient to allow evaluation of the LV diastolic function due to atrial fibrillation. Right Ventricle The right ventricle is normal size. The right ventricular systolic function is normal. Atria Left atrium is dilated. Right atrium is dilated. Aortic Valve The aortic valve is sclerotic. No aortic regurgitation is present. There is no aortic valvular stenosis. Mitral Valve The mitral valve is normal in structure. Moderate mitral regurgitation. No evidence of mitral valve stenosis. Tricuspid Valve The tricuspid valve is normal in structure. There is moderate tricuspid regurgitation. Estimated pulmonary artery pressure of 50 mmHg. There is moderate pulmonary hypertension. Pulmonic Valve The pulmonary valve is normal in structure. There is no pulmonic valvular regurgitation. Great Vessels The aortic root is normal in size. IVC is normal in size and collapses >50% with inspiration. [facility] [address] [address] [place] [address] 2 D/M-MODE ECHOCARDIOGRAM Name: SASHALINDA DAMIEN Room #: 219-P [facility] IN M.R.#: [id number] Admission: 04/04/21 Attend Phys: Mary Jane Kiser Discharge: Date of : 46 Report #: [id number] Pericardium There is no pericardial effusion. Pleural effusion noted <Conclusion> The left ventricular systolic function is normal. There is normal LV segmental wall motion. LVEF 60%. Both atria are dilated. The aortic valve is sclerotic. No aortic regurgitation or stenosis. The mitral valve is normal in structure. Moderate mitral regurgitation. There is moderate tricuspid regurgitation. Estimated pulmonary artery pressure of 50 mmHg. There is no pericardial effusion. <ELECTRONICALLY SIGNED> By: Lonnie Monroy MD, [facility] 04/07/21 1542 [id number] 1542 Lonnie Monroy MD, FACC /INF
[2021-04-07 16:01] VITALS: BP 108/42
--- NOTE | 2021-04-07 17:15 | NUR ---
Followup visit made with pt at bedside and f/u call to her friend Alisa regarding dc planning. Therapy has evalated the pt and she would benefit from a snf stay at dc. She is weak and it would give her friends time to help get her home in better living condition. Pt is a&ox4 and in better spirits today. She is pleasant and agreeable. She is interested in [facility] again or [facility] due to location near the hospital Referrals called and faxed to both. Alisa updated and agreeable. Pysch eval pending. Cultures pending. Possible dc soon. Will follow.
--- NOTE | 2021-04-07 18:13 | NUR ---
ASSESSMENT CHARTED - MEDS PER MAR - IV FLUIDS D/C'D THIS SHIFT. KARLA SMALL AMPUNTS OF DIET AND FLUIDS. PT STATES THAT SHE IS NOT HUNGRY. UP TO THE BATHROOM WITH STBY ASSIST. WITH ACTIVITY PATIENT HR UP TO 140-170-S DR DAILY NOTIFIED AND CARDIOLOGY CONSULTED - SEEN THIS SHIFT. ECHO COMPLETED ORDERED. TOPROLOL ORDERED FOR SUSTAINED HR GREATER THAN 120 - HAVE NOT NEEDED SO THIS SHIFT. PT WITH NO CO'S OF PAIN OR NASUEA. STATES COMFORTABLE AT THE PRESENT TIME.
[2021-04-07 19:23] VITALS: BP 142/58
--- NOTE | 2021-04-08 04:00 | NUR ---
Assumed pt care at 1900. No sign of distress noted in pt. Pt is laying in bed, resting comfortably. Pt drowsy, but is resposning. Fall precaution in place. Assessment completed and documented. Denies pain. Scheduled meds administered to pt. No acute events through the night. Continue to monitor, no further needs at this time.
[2021-04-08 05:43] VITALS: BP 133/71
[2021-04-08 07:06] LABS: HEMATOCRIT 26.8 % (37.0-47.0); HEMOGLOBIN 8.6 gm/dL (12.0-15.0); MCH 26.2 pg (26.0-34.0); MCHC 31.9 g/dL (28.0-37.0); MCV 82.1 fL (80.0-100.0); RBC 3.27 mil/uL (4.20-5.00); RDW 17.5 % (10.5-14.5); WBC 19.8 thou/uL (4.0-11.0)
--- NOTE | 2021-04-08 07:10 | EKG ---
[place] [address] [facility] [place] [address] ELECTROCARDIOGRAM REPORT Name: LINDA BAEZ DAMIEN Room #: 219-P ADM IN M.R.#: [id number] Admission: 04/04/21 Attend Phys: Mary Jane Bashir Discharge: Date of : 46 Report #: [id number] [facility] Test Date: 2021-04-08 Test Time: 07:01:17 Pat Name: LINDA BAEZ Department: Room: 219 P Gender: F Finishing Technician: EUGENE : 1950 Requested By: Lonnie Monroy Order Number: [id number] MD: Raz Mariano Measurements Intervals [place] Rate: 68 P: 30 NV: 139 QRS: 50 QRSD: 98 T: 62 QT: 431 QTc: 459 Interpretive Statements Sinus arrhythmia Low voltage, extremity leads Compared to ECG 04/04/2021 16:12:24 Low QRS voltage now present Atrial fibrillation no longer present Electronically Signed On 04-08-2021 7:10:34 CDT by Raz Mariano [email or web address] <ELECTRONICALLY SIGNED> By: Raz Mariano MD, [facility] 04/08/21709 0 0 Raz Mariano MD, FACC /EPI
[2021-04-08 07:20] LABS: ALBUMIN 1.5 g/dL (3.4-5.0); CREATININE 0.5 mg/dL (0.6-1.0); PHOSPHORUS 3.2 mg/dL (2.5-4.9); POTASSIUM 4.3 mmol/L (3.5-5.1)
[2021-04-08 08:11] VITALS: BP 130/70
[2021-04-08] MEDS ORDERED: CARDIZEM CD120 MG PO (10:52)
[2021-04-08] MEDS ORDERED: SPIRONOLACTONE25 M1 PO (10:52)
[2021-04-08] MEDS ORDERED: AUGMENTIN 875-1 EACH PO (10:53)
[2021-04-08 11:36] VITALS: BP 127/71
--- NOTE | 2021-04-08 12:34 | NUR ---
[facility] acute rehab and psych have evaluated the pt this morning. [facility] can accept the pt and she indicates preference to go to rehab here vs SNF. Her goal is to regain her strength and return home. Her friend Alisa is here this and also agreeable. Her firends are planning on cleaning the home, carpets and replacing her bed starting this weekend. Alisa will also be helping her get her bills and finances in better order. Pt to f/[place] with [place] psych [place]. [place] Psych can follow on [facility] as well. Pt still on o2 and has a concentrator at home for prn usage. [facility] notified to cancel the snf referral. [facility] is not able to accept due to her leaving there ama in the recent past.
[2021-04-08 17:38] VITALS: BP 137/67
--- NOTE | 2021-04-08 19:36 | NUR ---
ASSESSMENT CHARTED - MEDS PER EMILIA - KARLA DIET AND FLUIDS IN SMALL AMOUNTS. PT UP TO THE BATHROOM WITH STBY ASSIST. SEEN BY PHYS AND OCC THERAPY TODAY - PT TRANSFERED TO THE REHAB UNIT THIS EVENING - NO CO'S AT TIME OF TRANSFER - LEFT UNIT VIA WHEELCHAIR WITH BELONGINGS
== END 2021-04-08 18:24 | DRG 871 ==
LOC: ER 16:00 → 2N 18:41 → EROBS 18:41 → 2N 21:33
PROVIDERS: Emergency Medicine; Internal Medicine; Nurse Practitioner Family; ADMIT Hospitalist; ATTEND Hospitalist
PROC: 0W993ZZ Drainage of Right Pleural Cavity, Percutaneous Approach (ICD-10-PCS; principal; 2021-04-05)
DX: A41.9 Sepsis, unspecified organism (principal); E43 Unspecified severe protein-calorie malnutrition; G93.41 Metabolic encephalopathy; N39.0 Urinary tract infection, site not specified; J91.8 Pleural effusion in other conditions classified elsewhere; Z68.1 Body mass index [BMI] 19.9 or less, adult; I95.9 Hypotension, unspecified; Z20.822 Contact with and (suspected) exposure to COVID-19; J44.9 Chronic obstructive pulmonary disease, unspecified; I48.0 Paroxysmal atrial fibrillation; E78.5 Hyperlipidemia, unspecified; F41.9 Anxiety disorder, unspecified; R31.9 Hematuria, unspecified; F17.210 Nicotine dependence, cigarettes, uncomplicated; E86.0 Dehydration; F43.20 Adjustment disorder, unspecified; B96.20 Unspecified Escherichia coli [E. coli] as the cause of diseases classified elsewhere; R53.81 Other malaise; Z60.2 Problems related to living alone; D50.9 Iron deficiency anemia, unspecified; F32.9 Major depressive disorder, single episode, unspecified; Z88.8 Allergy status to other drugs, medicaments and biological substances; Z88.1 Allergy status to other antibiotic agents; Z91.040 Latex allergy status; Z87.81 Personal history of (healed) traumatic fracture; Z79.899 Other long term (current) drug therapy; Z71.6 Tobacco abuse counseling; Z79.82 Long term (current) use of aspirin
CPT/HCPCS: 10081

== ENCOUNTER 2021-04-08 12:27 | Inpatient (IN) | payer OTHER ==
[~2021-04-08] VITALS: Ht 144.8 cm; Wt 34.2 kg
[~2021-04-08 12:27] MED LIST changes: +AUGMENTIN 875-1 EACH PO; +SPIRONOLACTONE25 M1 PO
--- NOTE | 2021-04-08 15:50 | NUR ---
Chart review. will be going to acute rehab this afternoon after covid test back. Spoke with her friend Alisa # [phone]. Intro to team meeting and dcp. Prior to hospital maria g, lives alone, in a house. 1 step to enter and 5 stairs inside. Hx of alcohol abuse and smoking. She manage her own medication. Has home oxygen, walker and cane. Been to skilled rehab and had hh in the past. Will cont following as needed for dc needs.
[2021-04-08 18:54] VITALS: BP 131/65
[2021-04-08 20:00] VITALS: BP 139/70
--- NOTE | 2021-04-09 04:15 | NUR ---
ASSUMED CARE OF PT AT 1900. ASSESSMENT CHARTED. WOUND CONSULT FOR 2 SMALL RED OPEN EXCORIATED AREAS. PICTURE ON CHART. Z-GUARD APPLIED. HAD MUSHY BLACK/GREEN STOOL. TRANSFERS TO BSC WITH GATE BELT AND MODERATE ASSIST OF 1. STILL VERY WEAK AND HAS DUMONT. O2 @ 3L/NC. VOICES NO COMPLAINTS OR REQUESTS. CONTINUE POC.
--- NOTE | 2021-04-09 04:35 | NUR ---
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
[2021-04-09 06:53] LABS: HEMOGLOBIN 7.9 gm/dL (12.0-15.0); MCHC 31.8 g/dL (28.0-37.0); MCV 81.7 fL (80.0-100.0); RBC 3.06 mil/uL (4.20-5.00); RDW 17.3 % (10.5-14.5); WBC 24.3 thou/uL (4.0-11.0)
[2021-04-09 06:56] LABS: CALCIUM 8.5 mg/dL (8.5-10.1); CREATININE 0.6 mg/dL (0.6-1.0); POTASSIUM 4.7 mmol/L (3.5-5.1)
[2021-04-09 07:30] VITALS: BP 114/53
--- NOTE | 2021-04-09 08:36 | NUR ---
PT ADMITTED TO [facility] THE EVENING OF 04/08/21. PT APPEARS COMFORTABLE. VSS. MEDS GIVEN ORDERED. SAT WNL ON 3-4 L NC. RT TREATMENTS GIVEN PRN AND ORDERED. PT REFUSED SCDS. UP TO THE BSC WITH 2 ASST/GAIT. PT VERY WEAK AND SOA WITH EXERTION. VOIDING LARGE AMOUNT OF YELLOW URINE. INC AT TIMES. PRESSURE WOUNDS ON BOTTOM. ZGUARD APPLIED. CONSULTED WOUND CARE. PT ATE WELL THIS EVENING AND WAS VERY HUNGRY AFTER ARRIVING ON THE FLOOR. PT SLEEPING WELL. ORIENTED AND CALLING APPROPRIATELY. HX OF ANXIETY. PROVIDED MUCH EMOTIONAL SUPPORT. WILL CONTINUE TO MONITOR FREQUENTLY.
--- NOTE | 2021-04-09 12:29 | NUR ---
ASSUMED CARE AT 0700. PATIENT IS ALERT AND ORIENTED X4. PATIENT HAS SOME ANXIOUSNESS R/T HER COPD. PATIENT LUNGS ARE DEMINISHED. 02 AT 3L PER N/C. PATIENT REMAINS ON RESPIRATORY TX. ABD IS SOFT WITH BSX4. PATIENT IS INCONTINENT OF URINE AT TIMES. WOUND CARE TEAM TO SEE R/T GLUTEAL FOLDS. PATIENT REMAINS ON PO ABT WITHOUT ADVERSE AFFECTS. FALL AND SAFETY PROTOCOL IN PLACE. DENIES PAIN AT THIS TIME. CONTINUES TO PROGRESS SLOWLY TOWARDS D/C GOALS. PATIENT CONTINUES TO DESAT WITH ACTIVITY AND NEEDED 02 AT 4L PER N/C. WILL CONTINUE TO MONITER.
[2021-04-09 20:00] VITALS: BP 146/69
--- NOTE | 2021-04-10 05:21 | NUR ---
PT ASSESSMENT COMPLETED AND VSS. MEDS GIVEN ORDERED AND WELL TOLERATED. FALL PRECAUTIONS IN PLACE. UP TO THE BSC WITH ASST/GAIT. WEAK. PT HAD TWO SOFT UNFORMED BMS DURING THE NIGHT. VOIDING LARGE AMOUNT OF YELLOW URINE. MECHE CARE PROVIDED. PT HAS A HARD TIME WIPING HERSELF BECAUSE SHE IS VERY WEAK. ZGUARD APPLIED TO PRESSURE WOUNDS. ASST WITH REPOSIITON USING PILLOWS TO KEEP PT OFF BOTTOM. SAT WNL ON 3L NC. PT GETS VERY SOA WITH EXERTION. LOOSE NONPRODUCTIVE COUGH. BREATHING TREATMENTS HELPFUL WITH SOA. ANXIETY MEDICATION HELPFUL. PT SLEEPING WELL. WILL CONTINUE TO MONITOR FREQUENTLY.
[2021-04-10 07:20] VITALS: BP 142/72
--- NOTE | 2021-04-10 08:45 | NUR ---
PT LYING IN BED THIS AM. PT HAS OXYGEN ON 2L NC. PT DENIES ANY PAIN. PT HAS EXP WHEEZE AND INSP WHEEZE. PT TOOK AM MEDS WITH WATER, PT NEEDED ABX PILL SPLIT IN HALF. PT HAS BRIEF ON, PT HAS SORES TO COCCYX WITH ZGUARD CREAM. PT ENCOURAGED TO DRINK NUTRITIONAL SHAKE.
--- NOTE | 2021-04-10 10:43 | NUR ---
PT REQUESTING A RT TX. CALLED AND TALKED TO YEIMY FOR RT TX REQUEST.
--- NOTE | 2021-04-10 15:56 | NUR ---
PT UP TO BSC TO HAVE A BM AND VOID. PT STATED SHE IS HAVING ISSUES WITH SOB. PT OXYGEN CHECKED AND SAT 85% ON 2L NC. INCREASED OXYGEN TO 3L NC. PT SAT STAYED 85%. PT BACK TO BED AND NEEDED A REST SITTING UP PRIOR TO LAYING DOWN. PT OXYGEN AT 3L NC. PT HAS COURSE COUGH WITHOUT SPUTUM PRODUCTION.
[2021-04-10 21:06] VITALS: BP 122/59
--- NOTE | 2021-04-11 00:08 | NUR ---
PT ALERT AND ORIENTED X 4, FORGETFUL. UP TO BSC WITH ASSIST X 1. 02 ON AT 2L PER NC CONT. SOB WITH EXERTION. INCONT OF URINE IN LARGE AMTS. PT TOOK HS MEDS WITH WATER WITHOUT DIFFICULTY. PT DENIES PAIN OR DISCOMFORT. BED ALARM ON FOR SAFETY. PT APPEARS TO BE SLEEPING ON HOURLY ROUNDS.
[2021-04-11 07:15] VITALS: BP 125/58
--- NOTE | 2021-04-11 07:21 | NUR ---
ASSUME CARE 1900. PT/VITALS STABLE/ DENIES PAIN. MODERATE TOLERANCE TO ACTIVITY. UP TO BSC WITH MOLD ASSISTANCE. ASSESSMENT CHARTED. PROGRESSING MODERATELY WITH POC. NO DISTRESS NOTED. PLAN IS TO CONTINUE TO WORK WITH PT/OT, CONTINUE ABX THERAPY AND THERAPY FOR AFIB RATE AND RHYTHM CONTROL. WILL CONTINUE TO MONITOR AND FOLLOW WITH POC
--- NOTE | 2021-04-11 10:46 | NUR ---
WOUND CONSULT; NO WOUND IDENTIFIED TODAY, ONLY BLANCHABLE ERYTHEMA. THE PATIENT IS A WEAK AND VERY FRAGILE WOUND OF 71 YEARS ON O2 AND IS ONLY 99 LBS. THE SKIN IS INTACT. RECOMMENDATIONS; -APPLY BARRIER CREAM TO THE COCCYX/SACRAL BUTTOCKS REGION BID. -LOW AIRLOSS BED PUMP DOCUMENT IT IS ON AT ALL TIMES. DISCUSSED WITH RN.
--- NOTE | 2021-04-11 18:42 | NUR ---
RECIEVED A CALL FROM RAD AND ACKNOWLEDGE THE PROCEDURE OF THOROCENTESIS TOMMORROW.
[2021-04-11 20:08] VITALS: BP 112/52
--- NOTE | 2021-04-12 01:20 | NUR ---
PT ASSESSMENT COMPLETED AND VSS. MEDS GIVEN ORDERED BUT PT DID NOT WANT HER ANXIETY MEDICATION THIS EVENING. SAT WNL ON 3L NC. UP TO THE BSC WITH ASST/GAIT. PT VERY WEAK. PT INC OF URINE FREQUENTLY. PT HAD A MODERATE BROWN SOFT BM AT HS. SOA WITH EXERTION. CLEANED PT BOTTOM WITH SALINE AND APPLIED BARRIER CREAM. PT SLEEPING ON HER SIDE. WILL CONTINUE TO MONITOR FRQUENTLY. NPO AFTER MIDNIGHT FOR AM PROCEDURE.
[2021-04-12 08:00] VITALS: BP 134/66
[2021-04-12 10:22] LABS: CLARITY CLEAR; COLOR YELLOW; SOURCE RIGHT CHEST; TOTAL VOLUME 62 mL
[2021-04-12 11:26] LABS: BF NUCLEATED CELLS 182 /mm3; BF RBC 764 /mm3
[2021-04-12 13:21] LABS: BF MACROPHAGE 43 %; BF NEUTROPHILS 12 %
--- NOTE | 2021-04-12 13:38 | NUR ---
team meeting: Thoracentesis today. Soa with activity. Always had pets, 1st time not had any pets. transfer contact assist. 18-50 ft with fww. stairs 4 with 2 handrails. contact Francine assist. Mod to severe cognition and memory. Need assist with medication and finances. No alcohol, no driving, assist with medication and financed. ( pt, ot, st, sw and nursing). DC 04/22
--- NOTE | 2021-04-12 19:15 | NUR ---
ASSUMED C/O PT AT 0700. PT DOWN FOR THORACENTESIS THIS MORNING. PT WORKED WITH THERAPIES TODAY. PT HAD A CT OF CHEST THIS FTERNOON. PT A&OX4 BUT VERY FORGETFUL. PT TOLERATING REGULAR DIET. DENIES PAIN. GAIT STEADY WITH WALKER AND SBA
[2021-04-12 19:27] VITALS: BP 110/56
--- NOTE | 2021-04-13 04:10 | NUR ---
Assumed care on 04/12/21, in bed eyes closed, responds to voice. A&Ox4 Cooperative with care, able to take meds whole with water, refused anxiety medication saying that she saves it for when she is really bad. VSS SpO2 96%, Oxygen @ 2L via n/c no shortness of breath or distress noted. Dressing on right ventral thorasic region is C/D/I. Uses bedside comode to toilet, urine void noted. Will continue to monitor for safety and comfort as per unit protocol.
[2021-04-13 07:15] VITALS: BP 125/61
[2021-04-13 14:08] LABS: BODY FLUID ALBUMIN 1.1 g/dL (Not Estab.); BODY FLUID AMYLASE 36 U/L (()); BODY FLUID GLUCOSE 92 mg/dL (()); BODY FLUID LDH 106 IU/L (()); BODY FLUID PROTEIN 2.2 g/dL (())
--- NOTE | 2021-04-13 15:00 | NUR ---
Saúl visited with friend alisa in waiting room. If she comes home she will need to be able to provide her own care and then ramos and i can go over 2 x day and help with medication and finances per alisa. Kalani said that alisa is her dpoa for medical and finance. Education that kalani should have dpoa paper work complete for medical while she is here. medical dpoa packet provided and call for notary when kalani completes cristobal. Alisa going to go to the bank for assist with finances poa. She might need more rehab to be able to go home, she might be loosing her home in apr on for closure and not being able to make her house payment through [employer] per alisa. Will cont following as needed for dc needs. dc 04/22.
[2021-04-13 16:03] LABS: SOURCE CHEST
[2021-04-13 19:21] VITALS: BP 118/54
--- NOTE | 2021-04-14 03:19 | NUR ---
PT ASSESSMENT COMPLETED AND VSS. MEDS GIVEN ORDERED AND WELL TOLERATED. FALL PRECAUTIONS IN PLACE. UP TO THE BSC SEVERAL TIMES DURING THE NIGHT. MECHE CARE PROVIDED. CLEANED BOTTOM WITH SALINE AND APPLIED BARRIER CREAM. ANXIETY MEDICATION HELPFUL. SLEEPING WELL. WILL CONTINUE TO MONITOR FREQUENTLY.
[2021-04-14 08:00] VITALS: BP 145/73
--- NOTE | 2021-04-14 10:36 | NUR ---
WOUND CARE F/U; THE COCCYX AND BUTTOCKS WOUNDS WERE ASSESSED TODAY. BOTH WOUNDS ARE CLINICALLY BETTER TODAY SINCE LAST ASSESSMENT. THE PATIENT IS ABLE TO TRANSFER FROM WHEEL CHAIR TO COMMODE AND TO BED WITH SOME ASSSISTANCE. SHE IS ABLE TO REPOSITION IN BED WHICH I ENCOURAGED. NO NEED TO CHANGE ORDERS AT THIS TIME. DISCUSSED WITH RN.
--- NOTE | 2021-04-14 16:06 | NUR ---
Alisa visited today and maria g and here working on paperwork for dc, question for cm and if going to get home health at [facility]. CM educate that she will have some hh at [place]. will cont following as needed for dc needs.
[2021-04-14 19:41] VITALS: BP 111/59
--- NOTE | 2021-04-14 20:02 | NUR ---
PT WILLINGLY WORKED WITH THERAPIES. PT TOLERATING REGULAR DIEST WITH SNACKS. WILL CONTINUE TO MONITOR.
--- NOTE | 2021-04-15 04:09 | NUR ---
ASSUMED CARE OF PT AT SHIFT CHANGE. PT IS AOX3-4 AND LETS NEEDS BE KNOWN. PT CAN BE CONFUSED AT TIMES. FALL PRECAUTION IN PLACE. PT PLACED NPO AT PR FOR PROCEDURE IN THE AM. IVF STARTED. PT WAS ABLE OT GET COMFORTABLE AND SLEEP PART OF THE SHIFT. VSS AND NO S/S OF ACUTE DISTRESS. WILL CONTINUE TO MONITOR FOR CHANGES.
[2021-04-15 05:19] LABS: HEMATOCRIT 23.2 % (37.0-47.0); HEMOGLOBIN 7.6 gm/dL (12.0-15.0); MCH 26.2 pg (26.0-34.0); MCHC 32.8 g/dL (28.0-37.0); MCV 79.8 fL (80.0-100.0); PLATELET COUNT 741 thou/uL (150-400); RBC 2.91 mil/uL (4.20-5.00); WBC 22.3 thou/uL (4.0-11.0)
[2021-04-15 05:25] LABS: CALCIUM 8.3 mg/dL (8.5-10.1); CREATININE 0.8 mg/dL (0.6-1.0); MAGNESIUM 1.9 mg/dL (1.8-2.4)
[2021-04-15 05:46] LABS: POTASSIUM 5.3 mmol/L (3.5-5.1)
[2021-04-15 07:04] LABS: ABSOLUTE NEUTROPHILS 19.2 thou/uL (1.4-8.2); ANISOCYTOSIS 1+; PLATELET ESTIMATE INCREASED; POIKILOCYTOSIS 1+
[2021-04-15 08:00] VITALS: BP 133/75
--- NOTE | 2021-04-15 09:58 | PATH ---
[facility] [address] [place] [address] PATHOLOGY RPT PROCEDURE Name: LINDA BAEZ Room #: 506-1 ADM IN M.R.#: [id number] Admission: 04/08/21 Date of : 46 Discharge: Report #: [id number] Path Case #: [id number] Note [facility] Accession Number: [id number] TESTS RESULT FLAG UNITS REF RANGE LAB Clinician Provided Cytology Information No. of containers..01 Other (Miscellaneous) Source: RIGHT PLEURAL DIAGNOSIS: RIGHT PLEURAL NEGATIVE FOR MALIGNANT CELLS. MESOTHELIAL CELLS ARE PRESENT. Signed out by: 02 Ha Smith DO, Pathologist NPI- [id number] Performed by: 01 Opal Foster, Wallcovering Texturer ([facility]) Gross description: 13ML, CLEAR, YELLOW /LCS 04/12/2021 1503 Local FLAG LEGEND: L-Low Normal,H-High Normal,LL-Alert Low,HH-Alert High <-Panic Low,>-Panic High,A-Abnormal,AA-Critical Abnormal Performed at: [address] [place] [address] Osito Deng MD, [address] [place] [id number] Dereje Bee MD, Specimen Comment: A duplicate report has been generated due to demographic updates. Performed at: [address], [place], [place] [id number] MD Osito Deng MD Phone: [phone]
--- NOTE | 2021-04-15 10:04 | NUR ---
Please obtain weight via standing scale when practical to assess accuracy of weight trend.
--- NOTE | 2021-04-15 10:10 | NUR ---
ASSUMED CARE AT 0700. PATIENT IS ALERT AND ORIENTED X 3-4. PATIENT SALCEDO'S, PUFF IRON OPERATOR ARE EQUAL. LUNGS ARE COARSE AND DEMINISHED. 02 AT 2L PER N/C. PATIENT IS NPO. PLAN CXR TODAY AND DR. KNIGHT WILL TALK TO PATIENT ABOUT BRONCH VS MEDS. 1/2 NS IV FLUIDS CONTINUE PER LEFT FORARM IV AT 75CC/HR. IV STIE WITHOUT REDNESS OR SWELLING. ABD IS SOFT WITH BSX4. PATIENT IS UP TO BSC WITH SBA. FALL AND SAFETY PROTOCOLS IN PLACE. DENIES PAIN AT THIS TIME. CONTINUES TO PROGRESS SLOWLY TOWARDS D/C GOALS. WILL CONTINUE TO MONITER.
--- NOTE | 2021-04-15 12:38 | NUR ---
Cont. therapy, and cont dc planning as needed for dc needs.
[2021-04-15 20:44] VITALS: BP 117/66
--- NOTE | 2021-04-16 04:55 | NUR ---
ASSUMED CARE OF PT AT SHIFT CHANGE. PT IS AOX3-4 AND LETS NEEDS BE KNOWN. FALL PRECAUTION IN PLACE; PT IS NON-COMPLIENT WITH FALL PRECAUTIONS AT TIMES. PT DENIED PAIN OR NAUSEA. O2 VIA NC CONTINUED. PT WAS ABLE TO GET COMFORTABLE AND SLEEP PART OF THE SHIFT. VSS AND NO S/S OF ACUTE DISTRESS. WILL CONTINUE TO MONITOR FOR CHANGES.
[2021-04-16 07:15] VITALS: BP 123/68
--- NOTE | 2021-04-16 16:21 | NUR ---
Pt remained safe and comfortable watching TV , afebrile, worked with PT/OT, on 2 L of O2 NC, fall precaution applied, adequate appetite; no new concerns.
[2021-04-16 19:28] VITALS: BP 141/73
--- NOTE | 2021-04-17 00:09 | NUR ---
PT ALERT AND ORIENTED X 4. UP TO BSC WITH ASSIST X 1 WITHOUT DIFFICULTY. 02 ON AT 2L PER NC CONT. SOB WITH ACTIVITY. PT TAKES MEDS WITH WATER WITHOUT DIFFICULTY. PT DENIES PAIN OR DISCOMFORT. REFUSED XANAX AT HS. STATED I DON'T NEED IT. BED ALARM ON FOR SAFETY. PT APPEARS TO BE SLEEPING ON HOURLY ROUNDS.
[2021-04-17 07:20] VITALS: BP 133/70
--- NOTE | 2021-04-17 11:14 | HC ---
[facility] [place] [address] CONSULTATION Name: LINDA BAEZ Room #: 506-1 ADM IN M.R.#: [id number] Admission: 04/08/21 Attend Phys: Galo Sultana MD Discharge: Date of : 46 Report #: [id number] THIS REPORT FOR: cc: Tad Burciaga MD, Michael D. MD Deutch,Juan Alfaro. PhD ~ DATE OF SERVICE: 04/10/2021 NEUROBEHAVIORAL STATUS EXAM ATTENDING PHYSICIAN: Galo Sultana MD. MATHEMATICIAN RESEARCH: Juan Stephens, PhD CLINICAL PRESENTATION: The patient is a 71-year-old female admitted to the hospital on 04/04/2021 with mental status changes. A friend called emergency medical services because of concern regarding her behavior. She was found in bed with animal feces, urine and flies throughout the house. Apparently, the patient stayed in bed with her dogs' body for 5 days and it had started to decompose. In the emergency room, she was found to have leukocytosis and a UTI. Her medical problem list included anxiety, arm contusion, atrial fibrillation, COPD, closed right hip fracture, eczema, femoral neck fracture, hypotension, hypoxia, impetigo, leukocytosis, paroxysmal atrial fibrillation, panic attack, tobacco dependence and a UTI. Heavy alcohol use is also reported. Her assessment on admission to the rehabilitation unit was acute metabolic encephalopathy, medical complexity with generalized debility, E. coli UTI, AFib with RVR, right pleural effusion status post thoracentesis, PCM and dehydration, femoral neck fracture in 12/2020, depression with grief reaction and history of alcohol abuse. A complete description of her medical condition and history can be found in her medical record. Neuropsychological consultation was requested to provide assistance in the assessment of cognitive and emotional status and provide recommendations and services. Prior to this most recent admission, she reports living alone in her home. She had never and has no children. Her closest relative is reported to live in [place], [place]. She reports having difficulty in the management of life without her pets and increasing loneliness. Social support is very poor and primarily includes one close friend. The patient is a high school graduate. 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 TECHNIQUES UTILIZED: Clinical interview, review of medical records, staff consultation and behavioral observation, mini mental status exam 2 standard version, verbal fluency assessment and clock drawing. [address] [address] CONSULTATION Name: LINDA BAEZ Room #: 506-1 ADM IN [facility].#: [id number] Admission: 04/08/21 Attend Phys: Galo Sultana MD Discharge: Date of : 46 Report #: [id number] EXAMINATION FINDINGS: The patient was alert and cooperative with the assessment. However, she was unable to accurately describe events surrounding her hospitalization. She does not present with aphasia or report auditory or visual hallucinations. Her symptoms are reported to include reduced appetite, anxiety and depression along with some variability in her memory. Tobacco use is reported as high. Patient denied excessive use of alcohol. However, alcohol abuse disorder is indicated in her medical record. Performance on the MMSE-2 brief version is in the impaired range with a raw score of 12-16. She was 3/3 for initial registration, 4/5 for orientation to time and 4/[address]. She was 1/3 for immediate recall of 3 items after a brief time delay and distraction. Performance on the MMSE-2 standard version was extremely low with a raw score of 23/30. She was 3/5 for serial sevens, 2/2 for naming, 1/1 for repetition, 3/3 for auditory comprehension. She could read and follow a single command and write a sentence. The patient was unable to copy a simple geometric design. The patient was able to draw a clock with some mild difficulty in hand placement. Suggested is a mild deficit in semantic and perceptual reasoning. Letter fluency was extremely low with a T score at 24 and percentile rank of less than 1. Category fluency was extremely low, with a T score at 27 and percentile rank of 1. Overall, total fluency was extremely low with a T score at 23 and percentile rank of less than 1. The patient is presenting with deficits in neurocognitive functioning. While currently alert and oriented, difficulty with memory and executive functioning are suggested. Depressive disorder is also noted. DIAGNOSTIC IMPRESSION: Major neurocognitive disorder (dementia), with poor insight -- likely of mild severity. Unspecified depressive disorder with anxiety. Alcohol use disorder. RECOMMENDATIONS: The patient will require assistance in the management of medication, finances and nutrition. A structured living environment that includes social interaction for interpersonal and social support is recommended. Alcohol use should be discontinued. The patient is at an increased safety risk. The use of an antidepressant [facility] [address] [place] [address] CONSULTATION Name: LINDA BAEZ Room #: 506-1 [facility] IN M.R.#: [id number] Admission: 04/08/21 Attend Phys: Galo Sultana MD Discharge: Date of : 46 Report #: [id number] medication along with counseling services may be of benefit to assist her overall adjustment. Poor social support places her at an increased risk for neglect. Thank you very much for allowing me to provide the consultation on this patient. <ELECTRONICALLY SIGNED> By: Juan Stephens, PhD 04/17/21 1114 1713 0350 Juan Stephens, PhD /nt
--- NOTE | 2021-04-17 16:16 | NUR ---
Assumed care of PT at shift change. A/O x 4, takes pills whole with water, impulsive when waiting for staff to come in to assist; remained on 2 L of O2 , o2 demande increased with activities, no c/o pain or discomfort, Pt prefers Zanax to be PRN, seems to be comfortable, safety measures implemented. Labs reviewed. No new concerns. [facility] therapy to be cont'd.
[2021-04-17 19:46] VITALS: BP 116/64
--- NOTE | 2021-04-18 04:21 | NUR ---
04-17-21 CARE TRANSFERRED 1914. PT AAOX4, VSS, RR EVEN AND NONLABORED ON 2L 02 WHILE RESTING, SOA DURING MOVEMENT. LT FOREARM IV P/C/I S/L. REDNESS ON BUTTOCKS, PT HAS BEEN ASSISTED WITH REPOSITION FOR COMFORT. PT HAD NO DIFFICULTIES TAKING MEDICATION WHOLE WITH WATER. BED ALARM ON FOR SAFETY.
[2021-04-18 07:19] VITALS: BP 122/66
--- NOTE | 2021-04-18 09:12 | NUR ---
PT SITTING UP IN W/C THIS AM AFTER THERAPY. PT LUNGS CLEAR TO UPPER LOBES AND DIMINISHED TO LOWER LOBES. PT DENIES ANY PAIN. PT HAS OXYGEN ON 2L NC. PT DOES NOT APPEAR SOB. PT ABLE TO TAKE MEDS WITH THIN WATER. PT UP VIA X1 TO BED OR CHAIR.
--- NOTE | 2021-04-18 12:54 | NUR ---
ADM LASIX 40MG PO X1 PER ORDERS.
[2021-04-18 19:42] VITALS: BP 112/64
--- NOTE | 2021-04-18 23:55 | NUR ---
PT ALERT AND ORIENTED X 4. UP TO BSC WITH ASSIST X 1. 02 ON AT 2L PER NC CONT. PT TAKES MEDS WITH WATER WITHOUT DIFFICULTY. PT DENIES PAIN OR DISCOMFORT. REFUSED XANAX AT HS. BED ALARM ON FOR SAFETY. PT APPEARS TO BE SLEEPING ON HOURLY ROUNDS.
[2021-04-19 05:35] LABS: HEMOGLOBIN 7.7 gm/dL (12.0-15.0); WBC 22.3 thou/uL (4.0-11.0)
[2021-04-19 05:56] LABS: HEMATOCRIT 24.2 % (37.0-47.0); MCH 25.4 pg (26.0-34.0); MCHC 31.9 g/dL (28.0-37.0); MCV 79.4 fL (80.0-100.0); RBC 3.04 mil/uL (4.20-5.00)
[2021-04-19 05:57] LABS: PLATELET COUNT 955 thou/uL (150-400)
[2021-04-19 05:58] LABS: CALCIUM 8.7 mg/dL (8.5-10.1); CREATININE 0.9 mg/dL (0.6-1.0); POTASSIUM 5.1 mmol/L (3.5-5.1)
--- NOTE | 2021-04-19 06:04 | NUR ---
CRITICAL PLATELETS 955 THIS MORNING. CALL PLACED TO VICENTE CASTANEDA NP. WAITING FOR RETURN CALL.
[2021-04-19 07:13] LABS: ABSOLUTE NEUTROPHILS 18.1 thou/uL (1.4-8.2); ANISOCYTOSIS 1+; METAMYELOCYTES 1 %; POIKILOCYTOSIS 1+; TARGET CELLS FEW
[2021-04-19 07:14] LABS: BURR CELLS FEW; LARGE PLATELETS FEW; PLATELET ESTIMATE MARKEDLY INCREASED
[2021-04-19 07:15] VITALS: BP 123/74
--- NOTE | 2021-04-19 11:15 | NUR ---
ASSUMED CARE AT 0700. PATIENT IS ALERT AND ORIENTED X4. PATIENT SALCEDO'S, COPY AND PRINT ASSOCIATE ARE EQUAL. PATIENT LUNGS ARE COARSE AND DEMINISHED. 02 AT 2L PER N/C. 02 OFF PER RESPIRATORY TX. 02 SAT 92-94% P.T. WILL MONITER SAT DURING EXERCISE. ABD IS SOFT WITH BSX4. PATIENT IS UP TO BSC TO VOID PAUL COLORED URINE. PATIENT CXR SHOWED BILATERAL ATELECTASIS AND BILATERAL PLEURAL EFFUSION. PATIENT IS TO START ON IV IRON. UP IN THE W/C FOR MEALS. FALL AND SAFETY PROTOCOLS IN PLACE. DENIES PAIN AT THIS TIME. CONTINUES TO PROGRESS SLOWLY TOWARDS D/C GOALS. WILL CONTINUE TO MONITER.
--- NOTE | 2021-04-19 13:11 | NUR ---
Team meeting, recommendation: poor insight, hx of alcohol use. dressing setup. wean off o2 at rest, did drop into 80's with activity. supervision touch with gait and fww. Going to need walker on each level of home. need assist with medication and finances. (pt, ot, st, nursing and sw). Dc 04/22. no driving and refrain from alcohol and smoking.
[2021-04-19 14:33] LABS: URINE BILIRUBIN NEGATIVE (Negative); URINE BLOOD NEGATIVE (Negative); URINE CLARITY CLEAR; URINE GLUCOSE-RANDOM* NEGATIVE (Negative); URINE KETONES NEGATIVE (Negative); URINE LEUKOCYTES-REFLEX NEGATIVE (Negative); URINE NITRITE-REFLEX NEGATIVE (Negative); URINE PROTEIN (DIPSTICK) NEGATIVE (Negative); URINE SPECIFIC GRAVITY 1.025 (1.005-1.035); URINE UROBILINOGEN 0.2 E.U./dl (0.2-1.0)
[2021-04-19 14:35] LABS: URINE COLOR YELLOW
--- NOTE | 2021-04-19 15:24 | PLAN ---
[facility] [place] [address] REHAB UNIT PLAN OF CARE Name: LINDA BAEZ Room #: 506-1 ADM IN M.R.#: [id number] Admission: 04/08/21 Attend Phys: Galo Sultana MD Discharge: Date of : 46 Report #: [id number] THIS REPORT FOR: cc: Tad Burciaga MD, Michael D. MD Smithson,Galo Roper MD ~ DATE OF SERVICE: 04/09/2021 PROGRESS NOTE AND OVERALL PLAN OF CARE HISTORY OF PRESENT ILLNESS: The patient was seen back earlier and was in no distress. Last recorded temperature 36.6, pulse 80, respirations 16, blood pressure 114/53. She is on 3 liters nasal cannula. She is on oral antibiotics. No calf swelling. She is pleasant and appeared motivated. We have been trending her oxygen up to 4 liters with activity. Functionally, she is transferring in physical therapy more with min assist prior to admission and has been ambulating a short distance with a front-wheeled walker. In occupational therapy this morning, she was supervision for grooming, supervision for upper body dressing, min assist with lower body dressing, bathing is mod assist. She does tend to fatigue. We are monitoring her O2 sats. Speech therapy also saw her this morning with moderate cognitive deficits and severe memory deficits. ASSESSMENT: A 71-year-old female with the following problem list: 1. Toxic metabolic encephalopathy. 2. Medical complexity with generalized debilitation. 3. Escherichia coli urinary tract infection. 4. Atrial fibrillation with rapid ventricular response. 5. Right pleural effusion, status post thoracentesis with 1500 mL removed. 6. Protein-calorie malnutrition. 7. Dehydration. 8. History of femoral neck fracture in 12/2020. 9. Past history of depression and grief reaction. 10. Past history of alcohol abuse. PLAN: The overall plan of care is based on the pre-admission screen and information garnered from therapy assessments. 1. Estimated length of stay is probably around 10 days. 2. Medical prognosis is reasonably good. 3. Anticipated interventions include interdisciplinary acute inpatient rehabilitation program. 4. Anticipated functional outcomes would be for the patient to become modified independent with transfers, mobility and ADLs and she will need to be assessed regarding adaptive aids that would be indicated. Goal is also to improve her cognition, so she can return back to the home setting. 5. Discharge destination would be back home where she lives in a house alone. 6. Expected therapy by discipline includes PT, OT and speech 1 hour per day [address] [address] REHAB UNIT PLAN OF CARE Name: LINDA BAEZ Room #: 506-1 ADM IN M.R.#: [id number] Admission: 04/08/21 Attend Phys: Galo Sultana MD Discharge: Date of : 46 Report #: [id number] each 5 days a week throughout the duration of the acute inpatient rehabilitation stay. ADDENDUM: The patient's prognosis for significant practical improvement within a reasonable period of time appears good. Given the patient's complex medical condition and risk of further medical complications, rehabilitation services could not be safely provided at a lower level of care such as a assisted facility. <ELECTRONICALLY SIGNED> By: Galo Sultana MD 04/19/21 1524 1351 2250 Galo Sultana MD /nt
[2021-04-19 17:03] LABS: OBSERVED RETIC COUNT 2.05 % (0.6-2.6)
[2021-04-19 20:10] VITALS: BP 111/62
--- NOTE | 2021-04-20 01:41 | NUR ---
assumed care approx 1900 evening 04/19. pt up to bsc at change of shift. pt had large soft bm early in shift. pt alert and oriented x4, appropriate and cooperative. pt took hs meds with water tolerating well. pt on room air. pt appears to be sleeping soundly. bed alarm on and call light in reach. will continue to monitor.
[2021-04-20 07:15] VITALS: BP 124/71
--- NOTE | 2021-04-20 08:36 | NUR ---
ASSUMED Care AT 0700. PATIENT IS ALERT AND ORIEMTED X4. PATIENT SALCEDO'S, NETWORK OPERATIONS MANAGER ARE EQUAL. LUNGS ARE COARSE AND DEMINISHED. 0FF 02 , WILL MONITER WITH ACTIVITY. CONTINUES ON RESPIRATORY TX. ABD IS SOFT WITH BSX4. UP TO THE BSC TO VOID PAUL COLORED URINE. S.L. IS PATENT AND INTACT IN HER RIGHT UPPER ARM. PLAN IV INFUSION OF IRON TODAY. FALL AND SAFETY PROTOCOLS IN PLACE. DENIES PAIN AT THIS TIME. CONTINUES TO PROGRESS TOWARDS D/C GOALS. WILL CONTINUE TO MONITER.
--- NOTE | 2021-04-20 10:50 | NUR ---
Saúl notified that maria g will need to stay and complete the 5 doses of IV iron. Per MD villaseñor moved to 04/25 at 10am her friends will pick her up. Alisa requested to talk with MD r/t medication question and results. Pass on to hospitalist [employer].
[2021-04-20 16:06] LABS: HAPTOGLOBIN 282 mg/dL (42-346)
[2021-04-20 19:27] VITALS: BP 115/63
--- NOTE | 2021-04-21 00:55 | NUR ---
assumed care approx 0 evening 04/20. pt lying in bed resting at change of shift. pt alert and oriented x4, appropriate and cooperative. pt up to bsc a couple of times before falling asleep. pt had dozed off and did not call out for her hs meds. pt presently sleeping. bed alarm on and call light in reach. will continue to monitor.
[2021-04-21 08:00] VITALS: BP 117/74
[2021-04-21 11:07] LABS: HEMOGLOBIN 7.6 g/dL (11.1-15.9)
[2021-04-21 14:57] LABS: HEMATOCRIT 26.1 % (37.0-47.0); HEMOGLOBIN 8.4 gm/dL (12.0-15.0); MCH 25.3 pg (26.0-34.0); MCV 78.9 fL (80.0-100.0); RBC 3.32 mil/uL (4.20-5.00); WBC 15.2 thou/uL (4.0-11.0)
[2021-04-21 14:58] LABS: BASOPHILS 1.2 % (0.0-2.0); EOSINOPHILS 3.7 % (0.0-3.0); LYMPHOCYTES 7.4 % (24.0-44.0); MCHC 32.1 % (28.0-37.0); MONOCYTES 4.3 % (1.0-8.0); POLYS 83.4 % (36.0-66.0); RDW 17.7 % (10.5-14.5)
[2021-04-21 15:07] LABS: PLATELET COUNT 1024 thou/uL (150-400)
[2021-04-21 15:08] LABS: GLOBULIN TOTAL 3.4 g/dL (2.2-3.9); M-SPIKE Not Observed g/dL (Not Observed)
[2021-04-21 17:07] LABS: ANA INTERPRETATION Negative (())
[2021-04-21 19:30] VITALS: BP 124/69
--- NOTE | 2021-04-21 20:10 | NUR ---
ASSUMED CARE TO PT AT SHIFT CHANGE, A/O X 4 , VSS, REMAINED IN BED FOR THE MOST PART OF THE DAY , SAFE AND COMFORTABLE, APPROPRIATE MOOD, GOOD APPETITE, WORKED WITH PT/OT, ON RA BUT WAS ON 1 L OF O2 FRO A FEW HRS BY PT MONI TO SBO WITH ACTIVITIES, ASLO HR WAS ON THE 120'S BUT BACK TO NORMAL RANGE SOON AFTER. PCO TO BE CONT'D
--- NOTE | 2021-04-22 00:04 | NUR ---
PT ALERT AND ORIENTED X 4. UP TO BSC WITH ASSIST X 1. O2 ON AT 1L PER NC CONT. PT TAKES MEDS WITH WATER WITHOUT DIFFICULTY. PT DENIES PAIN OR DISCOMFORT. REFUSED XANAX AT HS. STATED I DON'T NEED IT. BED ALARM ON FOR SAFETY. PT APPEARS TO BE SLEEPING ON HOURLY ROUNDS.
[2021-04-22 08:00] VITALS: BP 123/51
[2021-04-22] MEDS ORDERED: CARDIZEM CD120 MG PO (10:00)
[2021-04-22] MEDS ORDERED: SPIRONOLACTONE25 M1 PO (10:00)
[2021-04-22] MEDS ORDERED: ZOLOFT25 MG PO (10:00)
[2021-04-22] MEDS ORDERED: FOLIC ACID1 MG PO (10:00)
--- NOTE | 2021-04-22 12:09 | NUR ---
met with patient she is aware of dc on Sunday home with HH care. Patient to dc home with HH care from [facility]. Patient reports she has home oxygen at home. she reports her friend will be checkin in on her at home. casemgt to assist with dc planning.
--- NOTE | 2021-04-22 12:50 | NUR ---
Assumed care to Pt at shift change, A/O x 4, VSS, labs reviewed, no new concerns, received Iron IV per order and all scheduled meds given , took pills whole with water, sat on chair for 2 hours, comfortable and safe with all safety measures maintained, no pain reported, afebrile, adequate mood, fair appetite. POC to be cont't w/ current therapy.
[2021-04-22 19:19] VITALS: BP 106/55
--- NOTE | 2021-04-23 00:21 | NUR ---
PT ALERT AND ORIENTED X 4. UP TO BSC WITH ASSIST X 1 WITHOUT DIFFICULTY. RIGHT FLANK BANDAID C/D/I. PT DENIES PAIN OR DISCOMFORT. PT REFUSED XANAX AT HS. BED ALARM ON FOR SAFETY. PT APPEARS TO BE SLEEPING ON HOURLY ROUNDS.
[2021-04-23 08:00] VITALS: BP 133/75
--- NOTE | 2021-04-23 09:16 | NUR ---
ASSUMED CARE AT 0700. PATIENT IS ALERT AND ORIENTED X4. PATIENT SALCEDO'S, ASSOCIATE PRODUCT MANAGER ARE EQUAL. LUNGS ARE DEMINISHD. PATIENT HAS BANDAID TO RIGHT LOWER BACK FROM HER BIOPSY YESTERDAY THAT IS DRY AND INTACT. ABD IS SOFT WITH BSX4. UP TO THE BSC WITH SBA AND GAIT BELT TO HAVE LARGE,SOFT, BROWN FORMED BM. PATIENT VOIDED PAUL COLORED URINE. IV IN RIGHT UPPER ARM INFILTRATED. IV RESTARTED IN LEFT AC WITH 22 GA JELCO. PATIENT TOLERATED PROCEDURE WELL. FALL AND SAFETY PROTOCOLS IN PLACE. DENIES PAIN AT THIS TIME. CONTINUES TO PROGRESS TOWARDS D/C GOALS. IV IRON CONTINUES TO INFUSE PER S.L. IN PATIENTS LEFT AC. WILL CONTINUE TO MONITER.
[2021-04-23 19:39] VITALS: BP 128/78
--- NOTE | 2021-04-24 02:17 | NUR ---
assumed care approx 1899 evening 04/23. pt sitting up in bed alert and oriented x4, pleasant and cooperative. pt up to bsc to void without difficulty. pt took hs meds with water tolerating well. pt stated she was looking forward to being discharged this Sunday. bed alarm on and call light in reach. will continue to monitor.
[2021-04-24 07:15] VITALS: BP 121/72
[2021-04-24 10:55] LABS: ABSOLUTE NEUTROPHILS 15.3 thou/uL (1.4-8.2); BASOPHILS 0.2 % (0.0-2.0); EOSINOPHILS 3.1 % (0.0-3.0); HEMATOCRIT 25.9 % (37.0-47.0); HEMOGLOBIN 8.2 gm/dL (12.0-15.0); LYMPHOCYTES 6.8 % (24.0-44.0); MCH 25.8 pg (26.0-34.0); MCHC 31.7 g/dL (28.0-37.0); MCV 81.1 fL (80.0-100.0); MONOCYTES 4.6 % (1.0-8.0); POLYS 85.3 % (36.0-66.0); RDW 19.1 % (10.5-14.5); WBC 17.9 thou/uL (4.0-11.0)
[2021-04-24 10:59] LABS: PLATELET COUNT 879 thou/uL (150-400)
[2021-04-24 11:13] LABS: CALCIUM 9.3 mg/dL (8.5-10.1); CREATININE 0.8 mg/dL (0.6-1.0); POTASSIUM 4.9 mmol/L (3.5-5.1)
[2021-04-24 11:49] LABS: ANISOCYTOSIS 2+; POIKILOCYTOSIS SLIGHT
[2021-04-24 11:50] LABS: SCHISTOCYTES RARE
--- NOTE | 2021-04-24 14:41 | NUR ---
Assumed care for pt at shift change, A/O x 4, calm and cooperative, takes meds whole w/ water up with 1A, I&O's satisfactory, mainly remained in bed, comfortable and safe w/ all safety measures in place, free from fall, afebrile, VSS, labs review, meds given as scheduled, no new concerns.
[2021-04-24 19:07] VITALS: BP 137/69
--- NOTE | 2021-04-24 23:29 | NUR ---
ASSUMED CARE AT 1900, PATIENT IS A&OX4, ON RA, VSS. DENIES PAIN OR DISCOMFORT. STAND BY ASSIST W/ TRANSFER TO BSC TO VOID. PATIENT PROVIDED W/ HS SNACKS PER PATIENT REQUEST. TOLERATED ORAL MEDS WHOLE WITH WATER. REFUSED XANAX AT HS. FALL PRECAUTIONS IN PLACE, CALL LIGHT WITHIN REACH. WILL CONTINUE TO MONITOR.
[2021-04-25 07:15] VITALS: BP 139/76
[2021-04-25 09:12] VITALS: BP 139/76
--- NOTE | 2021-04-25 09:14 | NUR ---
Voice messages from friend juan question about dc medication and times, questions about therapy, and her friend reba crabtree only going to be able to check on maria g at evening time and not able to be with her 4-6 hrs likes they had planned. CM passed on information to Dr Sultana and PANEL INSTALLER. [facility] (pt, ot, st, nursing and sw). provider plus delivered walker this morning for dc today.
[2021-04-25 10:14] VITALS: BP 139/76
[2021-04-25] MEDS ORDERED: NIFEREX TABLET1 EACH PO (11:46)
[2021-04-25] MEDS ORDERED: TRELEGY ELLIPT1 EACH INH (11:46)
[2021-04-25] MEDS ORDERED: VENTOLIN HFA 1818 GM INH (11:46)
--- NOTE | 2021-04-25 12:09 | NUR ---
Assumed pt care at 0700. Pt was alert and oriented x4. Assessments completed, vss. Calm and cooperative with care. Took meds whole with thin liquid, no difficulty noted. Pt ambulates with a walker. Pt is a Minimal assist with care. Meds education completed per pt request. left AC IV was D/C per DR order. pt was D/C AT 1045 with belongings, d/c instrution. Meds education was completed to Pt and DPOA by YRIS GOLDBERG. d/c is instruction completed to pt and DPOA by video games storywriter. Pt transfer to her car with supervision assist.
[2021-04-26] MEDS ORDERED: VITAMIN D250 MC1 PO (11:25)
== END 2021-04-25 10:45 | disposition home health service (06) | DRG 947 ==
PROVIDERS: Hospitalist; Internal Medicine; Nurse Practitioner; Nurse Practitioner Family; ADMIT Physical Medicine & Rehabilitation; ATTEND Physical Medicine & Rehabilitation
PROC: 0W993ZZ Drainage of Right Pleural Cavity, Percutaneous Approach (ICD-10-PCS; principal; 2021-04-12)
PROC: 0JB83ZX Excision of Abdomen Subcutaneous Tissue and Fascia, Percutaneous Approach, Diagnostic (ICD-10-PCS; 2021-04-22)
DX: R53.81 Other malaise (principal); J96.21 Acute and chronic respiratory failure with hypoxia; G92.8 Other toxic encephalopathy; I48.21 Permanent atrial fibrillation; J98.11 Atelectasis; N39.0 Urinary tract infection, site not specified; E46 Unspecified protein-calorie malnutrition; Z68.1 Body mass index [BMI] 19.9 or less, adult; F41.9 Anxiety disorder, unspecified; F32.9 Major depressive disorder, single episode, unspecified; B96.20 Unspecified Escherichia coli [E. coli] as the cause of diseases classified elsewhere; F43.20 Adjustment disorder, unspecified; J45.909 Unspecified asthma, uncomplicated; J43.9 Emphysema, unspecified; F17.210 Nicotine dependence, cigarettes, uncomplicated; F43.21 Adjustment disorder with depressed mood; E86.0 Dehydration; F01.50 Vascular dementia, unspecified severity, without behavioral disturbance, psychotic disturbance, mood disturbance, and anxiety; Z96.641 Presence of right artificial hip joint; R62.7 Adult failure to thrive; E55.9 Vitamin D deficiency, unspecified; D50.9 Iron deficiency anemia, unspecified; R19.00 Intra-abdominal and pelvic swelling, mass and lump, unspecified site; D75.839 Thrombocytosis, unspecified; Z88.8 Allergy status to other drugs, medicaments and biological substances; Z88.1 Allergy status to other antibiotic agents; Z91.040 Latex allergy status; Z87.81 Personal history of (healed) traumatic fracture; Z80.1 Family history of malignant neoplasm of trachea, bronchus and lung; Z83.6 Family history of other diseases of the respiratory system; Z79.82 Long term (current) use of aspirin; Z79.899 Other long term (current) drug therapy; Z23 Encounter for immunization
CPT/HCPCS: 10112

== ENCOUNTER → 2021-05-03 | Outpatient (CLI) | payer OTHER ==
[~2021-05-03] MED LIST changes: +FOLIC ACID1 MG PO; +NIFEREX TABLET1 EACH PO; +VITAMIN D250 MC1 PO
[2021-05-03 15:47] LABS: HEMATOCRIT 32.6 % (37.0-47.0); HEMOGLOBIN 10.6 gm/dL (12.0-15.0); MCHC 32.6 g/dL (28.0-37.0); MCV 86.1 fL (80.0-100.0); PLATELET COUNT 516 thou/uL (150-400); RBC 3.79 mil/uL (4.20-5.00); RDW 27.1 % (10.5-14.5); WBC 10.8 thou/uL (4.0-11.0)
[2021-05-03 17:46] LABS: ABSOLUTE NEUTROPHILS 9.2 thou/uL (1.4-8.2); ATYPICAL LYMPHS 1 %
[2021-05-03 17:49] LABS: ANISOCYTOSIS 2+; BURR CELLS FEW; MACROCYTES FEW; OVALOCYTES OCCASIONAL
[2021-05-03 17:50] LABS: SCHISTOCYTES OCCASIONAL
== END ==
LOC: LAB 15:08
PROVIDERS: ATTEND Internal Medicine
DX: D48.3 Neoplasm of uncertain behavior of retroperitoneum (principal)

== ENCOUNTER → 2021-05-13 | Outpatient (CLI) | payer OTHER | LOC: PET 14:15 | PROVIDERS: ATTEND Internal Medicine | DX: D48.3 Neoplasm of uncertain behavior of retroperitoneum (principal); R91.1 Solitary pulmonary nodule; R91.8 Other nonspecific abnormal finding of lung field ==

== ENCOUNTER → 2021-07-06 | Outpatient (CLI) | payer OTHER | LOC: CAT 07-04 15:43 | PROVIDERS: ATTEND Pediatrics | DX: J43.8 Other emphysema (principal); R91.1 Solitary pulmonary nodule; M48.54XA Collapsed vertebra, not elsewhere classified, thoracic region, initial encounter for fracture; J84.112 Idiopathic pulmonary fibrosis ==

== ENCOUNTER → 2021-07-11 | Day surgery (SDC) | payer OTHER ==
[~2021-07-11] VITALS: Ht 154.9 cm; Wt 39.5 kg
[~2021-07-11] MED LIST changes: +MIRALAX119 GM PO; +NORCO5 PO; +SERTRALINE HCL100 MG PO
[2021-07-11 08:45] VITALS: BP 160/70
[2021-07-11 13:57] LABS: CLARITY TURBID; COLOR RED; TOTAL VOLUME 50 mL
[2021-07-11 14:00] VITALS: BP 160/70
[2021-07-11 14:14] LABS: BF NUCLEATED CELLS 783 /mm3; BF RBC 608799 /mm3
[2021-07-11 14:52] LABS: BF MACROPHAGE 7 %; BF NEUTROPHILS 88 %
--- NOTE | 2021-07-13 11:07 | PATH ---
[facility] [place] [address] PATHOLOGY RPT PROCEDURE Name: LINDA BAEZ Room #: REG [facility].#: [id number] Admission: 07/11/21 Date of : 46 Discharge: Report #: [id number] Path Case #: [id number] Note [facility] Accession Number: [id number] TESTS RESULT FLAG UNITS REF RANGE LAB Clinician Provided Cytology Information No. of containers..01 Other (Miscellaneous) Source: [A] 01 RLL FNA DIAGNOSIS: [A] 01 RLL FNA POSITIVE FOR MALIGNANT CELLS. ADENOCARCINOMA IS PRESENT. THIS INTERPRETATION INCLUDES EVALUATION OF A CELL BLOCK. COMMENT, THIS CASE WAS ALSO REVIEWED BY DR MAMTA DECKER WHO AGREES WITH THE ABOVE DIAGNOSIS. DR. WANDA RODRIGUEZ WAS INFORMED OF DIAGNOSIS AT THE TIME OF PROCEDURE AND AN IMMEDIATE EVALUATION WAS ALSO DONE. IMMUNOPEROXIDASE STAIN NAPSIN AND TTF1 ARE POSITIVE AND P40 IS NEGATIVE WHICH FAVORS ADENOCARCINOMA Pathologist ICD10: 01 C34.90 Signed out by: Osito Deng MD, Pathologist NPI- [id number] Performed by: Opal Foster, Rn Stars ([facility]) Gross description: 01 25ML, DARK RED, TURBID /LCS 07/12/2021 0316 Local FLAG LEGEND: L-Low Normal,H-High Normal,LL-Alert Low,HH-Alert High <-Panic Low,>-Panic High,A-Abnormal,AA-Critical Abnormal Performed at: [address] [place] [address] Osito Deng MD, Specimen Comment: A courtesy copy of this report has been sent to [phone] Specimen Comment: [phone], Specimen Comment: [id number] Specimen Comment: Report sent to , DR WEN / DR ALTMAN Specimen Comment: A duplicate report has been generated due to demographic updates. [address] [address] PATHOLOGY RPT PROCEDURE Name: SASHALINDA Room #: REG [facility] M.R.#: [id number] Admission: 07/11/21 Date of : 46 Discharge: Report #: [id number] Path Case #: [id number] Performed at: 01 [facility] [place] [address], [place], [place] [id number] MD Osito Deng MD Phone: [phone]
--- NOTE | 2021-07-13 11:07 | PATH ---
[facility] [address] [place] [address] PATHOLOGY RPT PROCEDURE Name: LINDA BAEZ Room #: REG [facility]..#: [id number] Admission: 07/11/21 Date of : 46 Discharge: Report #: [id number] Path Case #: [id number] Note [facility] Accession Number: [id number] TESTS RESULT FLAG UNITS REF RANGE LAB Clinician Provided Cytology Information No. of containers..01 Other (Miscellaneous) Source: [A] 01 BAL RLL DIAGNOSIS: [A] 01 BAL RLL SUSPICIOUS FOR MALIGNANCY. COMMEMT, HIGHLY ATYPICAL CELLS ARE PRESENT SUSPICIOUS FOR MALIGNANCY. 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 Signed out by: Osito Deng MD, Pathologist NPI- [id number] Performed by: Opal Foster, Hand Drawer In Helper ([facility]) Gross description: 01 30ML, RED, TURBID /LCS 07/12/2021 0312 Local FLAG LEGEND: L-Low Normal,H-High Normal,LL-Alert Low,HH-Alert High <-Panic Low,>-Panic High,A-Abnormal,AA-Critical Abnormal Performed at: [address] [place] [address] Osito Deng MD, Specimen Comment: A courtesy copy of this report has been sent to [phone] Specimen Comment: [phone], Specimen Comment: Report sent to , DR ALTMAN / DR WEN Specimen Comment: A duplicate report has been generated due to demographic updates. Performed at: [address], [place], [place] [id number] MD Osito Deng MD Phone: [phone]
--- NOTE | 2021-07-19 15:07 | PATH ---
[facility] [place] [address] PATHOLOGY RPT PROCEDURE Name: KALANI BAEZ Room #: REG [facility] M.R.#: [id number] Admission: 07/11/21 Date of : 46 Discharge: Report #: [id number] Path Case #: [id number] LCA Accession Number: [id number] . 01 Material submitted: . flank - EXCISION OF MASS RIGHT FLANK RULE OUT CANCER. Modifiers: right . 01 Clinical history: . RETROPERITONEAL MASS BRONCHOSCOPY . 01 Amended report: . This is an amended report due to a clerical error. There is no change in the diagnosis. The report was inadvertently signed out without the diagnosis. . 02 Diagnosis: Skeletal muscle and dense fibrous fascial tissue (mass right flank): - Dense interstitial fibrosis and edge of abscess with granulation tissue, fibrosis, subacute and chronic inflammation (please see comment). (UMER/praful; 07/19/2021) . . Special studies report received from [facility], [address] [place] [address], [address], [place], [address], on case [id number], labeled with their number [id number], dated 07/13/2021. . Flow Cytometry: Hematologic Neoplasia Assessment . Clinical History Flank Mass . Indication For Study Evaluation for lymphoma . Specimen Tissue, Right Flank . Viability 23% (7AAD exclusion) . Interpretation Tissue, Right Flank: No significant lymphoid immunophenotypic abnormalities detected (limited study). See comments. . Comments Correlation with available clinical, laboratory, and morphologic data is [facility] [address] [place] [address] PATHOLOGY RPT PROCEDURE Name: SASHAKALANI LEE Room #: REG [facility]#: [id number] Admission: 07/11/21 Date of : 46 Discharge: Report #: [id number] Path Case #: [id number] recommended. . Results should be interpreted with caution due to reduced viability of the specimen (23%) and low cell yield of sample. . Populations Analyzed Lymphocytes: 1% B-cells: 0.2%, polytypic/polyclonal sIg light chain pattern T-cells: no significant abnormalities of the markers tested CD4:CD8: 2.9 NK cells: 0.1% Granulocytes: 1% Present CD45 Negative 98% No significant reactivity with the markers tested Events/Debris: (may represent non-hematolymphoid cells, degenerated cells, debris, unlysed red blood cells, etc.) . Morphologic Evaluation A slide was reviewed for quality assurance specialist purposes only. . Specimen Description Total Cell Yield: 0.27 X 10 and 6 Due to a low cellular viability, an average of 600 viable events were acquired per tube. Flow cytometry data derived from an acquisition with less than 10,000 viable events needs to be interpreted within the context of all clinical, laboratory, and morphologic data available. . Pertinent Prior Test Results Received Date Test Type Specimen Type Result 04/26/2021 Flow Cytometry Tissue Result Number: [id number] Tissue, Back, right, flank: - Increased CD4:CD8 ratio; in absence of T-cell aberrancy (see comment). - B-cells are essentially absent. . Reagent(s) Used CD2, CD3, CD4, CD5, CD7, CD8, CD10, CD11b, CD19, CD20, CD23, CD30, CD38, CD43, CD45, CD56, CD57, FMC-7, HLA-DR, kappa, lambda . at [facility]. Freida Mendoza MD Hematopathologist . Intended Use Flow cytometry is optimally used to immunophenotypically characterize [address] [address] PATHOLOGY RPT PROCEDURE Name: KALANI BAEZ Room #: REG [facility]#: [id number] Admission: 07/11/21 Date of : 46 Discharge: Report #: [id number] Path Case #: [id number] abnormal populations when they are detected. Negative flow cytometry results do not exclude lymphoma or neoplasia. Possible false negative flow cytometry results may occur in, but are not limited to, the following: neoplastic cells in Hodgkin lymphoma are not typically adequately represented by routine clinical flow cytometry; neoplastic cells may be lost or inadequately represented due to degeneration, sample processing, sampling artifact, or patchy involvement; plasma cells are typically underrepresented by flow cytometry; immature cells/blasts may be underrepresented due to hemodilution; myeloproliferative disorders and low grade myelodysplasia may not have immunophenotypic abnormalities or increased blasts. Correlation with all available clinical, laboratory, and morphologic data is always necessary to assess for the possibility of false negative flow cytometry results and to establish a diagnosis. Each marker in this analysis was used to assess for potential antigenic abnormalities or to evaluate detected abnormalities. . Any image or images that accompany this report are community service representative images only and should not be used to render a diagnosis. . Disclaimer(s) This test was developed and its performance characteristics determined by [employer] It has not been cleared or approved by the Food and Drug Administration. . [facility] is a business unit of [employer] a wholly-owned subsidiary of [employer]. . This test was performed at [facility]. at [address], [address] - Emergency Medicine Medical Director: Dejan Mcclendon MD. . For inquiries, the physician may contact Lab: [phone] . A complete copy of the report is on file. . Professional services performed by [facility]. at [address], [place] [address]. Technical services performed by [employer] [facility]. at [address], [place] [address]. . (SCA:[facility] 07/13/2021) . [facility] 07/19/2021 1104 Local . 02 Comment: [facility] [address] [place] [address] PATHOLOGY RPT PROCEDURE Name: KALANI BAEZ Room #: REG [facility] Maribeth#: [id number] Admission: 07/11/21 Date of : 46 Discharge: Report #: [id number] Path Case #: [id number] This appears to be the edge of a deep abscess. The origin or cause of such is not known from the current slides. This case has been co-reviewed by Dr. Osito Deng on 07/19/21. (SWK/db; 07/19/2021) . 02 Electronically signed: . Dereje Bee MD, Pathologist NPI- [id number] . 01 Gross description: . The specimen is received in saline, labeled "Kalani Baez, excision of mass- right flank rule out cancer fresh" and consists of 2 diez-yellow rubbery and fatty irregular tissues aggregating 2.7 x 2.1 x 0.8 cm. Sectioning reveals pink-diez glistening and rubbery cut surfaces. A community service representative sample is placed in RPMI media and held overnight in the gross room refrigerator. Two touch preps are made. The remainder of the specimen is submitted entirely in A1-A3. ([facility]; 07/11/2021) DKA/DKA 07/11/2021 1555 Local . 02 Pathologist provided ICD-10: M79.89, R22.2 . 02 CPT . 119107 Specimen Comment: A courtesy copy of this report has been sent to [phone] Specimen Comment: [phone] Specimen Comment: Report sent to / DR OBREGON Specimen Comment: A duplicate report has been generated due to demographic updates. Performed at: [address], [place], [place] [id number] MD Osito Deng MD Phone: [phone] Performed at: [address] [id number] MD Dereje Bee MD Phone: [phone]
== END | disposition home or self-care (01) ==
LOC: OR 07:40
PROVIDERS: Pediatrics; ATTEND Surgery
DX: C34.31 Malignant neoplasm of lower lobe, right bronchus or lung (principal); M79.89 Other specified soft tissue disorders; R22.2 Localized swelling, mass and lump, trunk; J44.9 Chronic obstructive pulmonary disease, unspecified; E78.5 Hyperlipidemia, unspecified; F41.9 Anxiety disorder, unspecified; F17.210 Nicotine dependence, cigarettes, uncomplicated; F32.9 Major depressive disorder, single episode, unspecified; Z98.890 Other specified postprocedural states; Z79.899 Other long term (current) drug therapy; Z20.822 Contact with and (suspected) exposure to COVID-19; Z85.118 Personal history of other malignant neoplasm of bronchus and lung
CPT/HCPCS: 50010; 50101; 50386; 50403; 56525; 56526; 58637; 62110; 62900; 70005

== ENCOUNTER → 2021-07-28 | Outpatient (CLI) | payer OTHER ==
[2021-07-28 13:10] LABS: CREATININE 0.9 mg/dL (0.6-1.0)
== END ==
LOC: MRI 08:26
PROVIDERS: ATTEND Internal Medicine
DX: I67.82 Cerebral ischemia (principal); R90.82 White matter disease, unspecified; R91.1 Solitary pulmonary nodule; D75.839 Thrombocytosis, unspecified; D72.829 Elevated white blood cell count, unspecified; D50.9 Iron deficiency anemia, unspecified; C34.31 Malignant neoplasm of lower lobe, right bronchus or lung